=== PATIENT | female | born 1945 | race Caucasian/White ===

== ENCOUNTER → 2018-01-08 00:55 | Outpatient (CLI) | payer MEDICARE, OTHER, SELFPAY ==
[2018-01-08 13:08] LABS: INR 1.8 (1.0-3.5); Prothrombin Time 17.6 sec (9.3-10.8)
== END ==
PROVIDERS: PCP Family Medicine; Visit Provider Family Medicine
DX: I48.91 Unspecified atrial fibrillation (principal); Z79.01 Long term (current) use of anticoagulants
CPT/HCPCS: 36415; 85610

== ENCOUNTER → 2018-01-22 03:55 | Outpatient (CLI) | payer MEDICARE, OTHER, SELFPAY ==
[2018-01-22 11:18] LABS: Hemoglobin A1C 6.2 % (4.5-6.2)
[2018-01-22 11:20] LABS: Anion Gap 7.9 mmol/L (3-11); CO2 30.1 mmol/L (21.0-32.0); CREATININE 1.54 mg/dL (0.55-1.02); Chloride 105 mmol/L (98-107); Estimated GFR 33.21 (mL/min/1.73m2); Potassium 4.6 mmol/L (3.5-5.1); Sodium 143 mmol/L (136-145)
[2018-01-22 11:21] LABS: INR 1.9 (1.0-3.5); Prothrombin Time 18.1 sec (9.3-10.8)
== END ==
PROVIDERS: PCP Family Medicine; Visit Provider Family Medicine
DX: I10 Essential (primary) hypertension (principal); E11.9 Type 2 diabetes mellitus without complications; I48.91 Unspecified atrial fibrillation; Z79.1 Long term (current) use of non-steroidal anti-inflammatories (NSAID)
CPT/HCPCS: 36415; 80051; 82565; 83036; 85610

== ENCOUNTER 2018-02-05 03:26 | Outpatient (CLI) | payer MEDICARE, OTHER, SELFPAY ==
[2018-02-05 13:23] LABS: INR 1.8 (1.0-3.5)
== END 2018-02-05 03:27 ==
PROVIDERS: PCP Family Medicine; Visit Provider Family Medicine
DX: I48.91 Unspecified atrial fibrillation (principal); Z79.01 Long term (current) use of anticoagulants
CPT/HCPCS: 36415; 85610

== ENCOUNTER 2018-02-12 05:30 | Outpatient (CLI) | payer MEDICARE, OTHER, SELFPAY ==
[2018-02-12 13:02] LABS: Prothrombin Time 19.2 sec (9.3-10.8)
[2018-02-13 21:20] LABS: Tissue Transglutaminase Ab IgA <1.2 U/mL; Tissue Transglutaminase Ab IgG 1.8 U/mL
== END 2018-02-12 05:50 ==
PROVIDERS: PCP Family Medicine; Visit Provider Family Medicine
DX: K52.9 Noninfective gastroenteritis and colitis, unspecified (principal); I48.91 Unspecified atrial fibrillation; Z79.01 Long term (current) use of anticoagulants
CPT/HCPCS: 36415; 83516; 85610

== ENCOUNTER 2018-02-19 01:36 | Outpatient (CLI) | payer MEDICARE, OTHER, SELFPAY ==
[2018-02-19 12:50] LABS: INR 2.3 (1.0-3.5); Prothrombin Time 21.4 sec (9.3-10.8)
== END 2018-02-19 01:56 ==
PROVIDERS: PCP Family Medicine; Visit Provider Family Medicine
DX: I48.91 Unspecified atrial fibrillation (principal); Z79.01 Long term (current) use of anticoagulants
CPT/HCPCS: 36415; 85610

== ENCOUNTER 2018-03-09 02:20 | Outpatient (CLI) | payer MEDICARE, OTHER, SELFPAY ==
[2018-03-09 13:16] LABS: INR 2.4 (1.0-3.5); Prothrombin Time 22.9 sec (9.3-10.8)
== END 2018-03-09 02:40 ==
PROVIDERS: PCP Family Medicine; Visit Provider Family Medicine
DX: I48.91 Unspecified atrial fibrillation (principal); Z79.01 Long term (current) use of anticoagulants
CPT/HCPCS: 36415; 85610

== ENCOUNTER 2018-03-23 01:40 | Outpatient (CLI) | payer MEDICARE, OTHER, SELFPAY ==
[2018-03-23 13:08] LABS: Prothrombin Time 19.5 sec (9.3-10.8)
== END 2018-03-23 02:00 ==
PROVIDERS: PCP Family Medicine; Visit Provider Family Medicine
DX: I48.91 Unspecified atrial fibrillation (principal); Z79.01 Long term (current) use of anticoagulants
CPT/HCPCS: 36415; 85610

== ENCOUNTER 2018-04-28 01:33 | Outpatient (CLI) | payer MEDICARE, OTHER, SELFPAY ==
[2018-04-28 11:21] LABS: INR 1.7 (1.0-3.5); Prothrombin Time 16.5 sec (9.3-10.8)
== END 2018-04-28 01:53 ==
PROVIDERS: PCP Family Medicine; Visit Provider Family Medicine
DX: I48.91 Unspecified atrial fibrillation (principal); Z79.01 Long term (current) use of anticoagulants
CPT/HCPCS: 36415; 85610

== ENCOUNTER 2018-05-27 08:38 | Outpatient (CLI) | payer MEDICARE, OTHER, SELFPAY ==
[2018-05-27 12:48] LABS: Prothrombin Time 19.8 sec (9.3-11.0)
== END 2018-05-27 08:58 ==
PROVIDERS: PCP Family Medicine; Visit Provider Family Medicine
DX: I48.91 Unspecified atrial fibrillation (principal); Z79.01 Long term (current) use of anticoagulants
CPT/HCPCS: 36415; 85610

== ENCOUNTER 2018-07-02 01:14 | Outpatient (CLI) | payer MEDICARE, OTHER, SELFPAY ==
[2018-07-02 12:02] LABS: INR 2.8 (0.9-1.1); Prothrombin Time 28.3 sec (9.3-11.0)
== END 2018-07-02 01:34 ==
PROVIDERS: PCP Family Medicine; Visit Provider Family Medicine
DX: I48.91 Unspecified atrial fibrillation (principal); Z79.01 Long term (current) use of anticoagulants
CPT/HCPCS: 36415; 85610

== ENCOUNTER 2018-08-02 01:44 | Outpatient (CLI) | payer MEDICARE, OTHER, SELFPAY ==
[2018-08-02 11:02] LABS: INR 1.7 (0.9-1.1); Prothrombin Time 17.1 sec (9.3-11.0)
== END 2018-08-02 02:04 ==
PROVIDERS: PCP Family Medicine; Visit Provider Family Medicine
DX: I48.91 Unspecified atrial fibrillation (principal); Z79.01 Long term (current) use of anticoagulants
CPT/HCPCS: 36415; 85610

== ENCOUNTER 2018-08-20 02:24 | Outpatient (CLI) | payer MEDICARE, OTHER, SELFPAY ==
[2018-08-20 14:08] LABS: Prothrombin Time 43.9 sec (9.3-11.0)
[2018-08-20 14:23] LABS: INR 4.3 (0.9-1.1)
== END 2018-08-20 02:44 ==
PROVIDERS: PCP Family Medicine; Visit Provider Family Medicine
DX: I48.1 Persistent atrial fibrillation (principal); Z79.01 Long term (current) use of anticoagulants
CPT/HCPCS: 36415; 85610

== ENCOUNTER 2018-08-23 01:40 | Outpatient (CLI) | payer MEDICARE, OTHER, SELFPAY | END 2018-08-23 02:00 | PROVIDERS: PCP Family Medicine; Visit Provider Family Medicine | DX: R69 Illness, unspecified (principal) | CPT/HCPCS: 36415; 85610 ==

== ENCOUNTER 2018-08-24 02:08 | Outpatient (CLI) | payer MEDICARE, OTHER, SELFPAY ==
[2018-08-24 11:44] LABS: Prothrombin Time 20.1 sec (9.3-11.0)
== END 2018-08-24 02:28 ==
PROVIDERS: PCP Family Medicine; Visit Provider Family Medicine
DX: I48.91 Unspecified atrial fibrillation (principal); Z79.01 Long term (current) use of anticoagulants
CPT/HCPCS: 36415; 85610

== ENCOUNTER 2018-08-31 02:05 | Outpatient (CLI) | payer MEDICARE, OTHER, SELFPAY ==
[2018-08-31 13:08] LABS: INR 2.3 (0.9-1.1); Prothrombin Time 23.1 sec (9.3-11.0)
== END 2018-08-31 02:25 ==
PROVIDERS: PCP Family Medicine; Visit Provider Family Medicine
DX: I48.91 Unspecified atrial fibrillation (principal); Z79.01 Long term (current) use of anticoagulants
CPT/HCPCS: 36415; 85610

== ENCOUNTER 2018-09-07 02:09 | Outpatient (CLI) | payer MEDICARE, OTHER, SELFPAY ==
[2018-09-07 13:28] LABS: INR 1.2 (0.9-1.1); Prothrombin Time 12.3 sec (9.3-11.0)
[2018-09-07 15:40] LABS: Hemoglobin A1C 6.1 % (4.5-6.2)
== END 2018-09-07 02:29 ==
PROVIDERS: PCP Family Medicine; Visit Provider Family Medicine
DX: E11.9 Type 2 diabetes mellitus without complications (principal); I48.91 Unspecified atrial fibrillation; Z79.01 Long term (current) use of anticoagulants
CPT/HCPCS: 36415; 83036; 85610

== ENCOUNTER 2018-09-13 02:22 | Outpatient (CLI) | payer MEDICARE, OTHER, SELFPAY ==
[2018-09-13 12:48] LABS: Prothrombin Time 20.6 sec (9.3-11.0)
== END 2018-09-13 02:42 ==
PROVIDERS: PCP Family Medicine; Visit Provider Family Medicine
DX: I48.91 Unspecified atrial fibrillation (principal); Z79.01 Long term (current) use of anticoagulants
CPT/HCPCS: 36415; 85610

== ENCOUNTER 2018-09-20 01:48 | Outpatient (CLI) | payer MEDICARE, OTHER, SELFPAY ==
[2018-09-20 10:54] LABS: INR 3.2 (0.9-1.1); Prothrombin Time 32.7 sec (9.3-11.0)
== END 2018-09-20 02:08 ==
PROVIDERS: Family Medicine; PCP Family Medicine; Visit Provider Family Medicine
DX: I26.99 Other pulmonary embolism without acute cor pulmonale (principal); Z79.01 Long term (current) use of anticoagulants
CPT/HCPCS: 36415; 85610

== ENCOUNTER 2018-09-27 04:25 | Outpatient (CLI) | payer MEDICARE, OTHER, SELFPAY ==
[2018-09-27 11:39] LABS: INR 3.1 (0.9-1.1); Prothrombin Time 31.6 sec (9.3-11.0)
== END 2018-09-27 04:45 ==
PROVIDERS: PCP Family Medicine; Visit Provider Family Medicine
DX: I48.91 Unspecified atrial fibrillation (principal); Z79.01 Long term (current) use of anticoagulants
CPT/HCPCS: 36415; 85610

== ENCOUNTER 2018-10-04 02:18 | Outpatient (CLI) | payer MEDICARE, OTHER, SELFPAY ==
[2018-10-04 12:58] LABS: INR 2.1 (0.9-1.1); Prothrombin Time 21.6 sec (9.3-11.0)
== END 2018-10-04 02:38 ==
PROVIDERS: PCP Family Medicine; Visit Provider Family Medicine
DX: I48.91 Unspecified atrial fibrillation (principal); Z79.01 Long term (current) use of anticoagulants
CPT/HCPCS: 36415; 85610

== ENCOUNTER 2018-10-18 01:18 | Outpatient (CLI) | payer MEDICARE, OTHER, SELFPAY ==
[2018-10-18 13:22] LABS: INR 2.5 (0.9-1.1); Prothrombin Time 24.9 sec (9.3-11.0)
== END 2018-10-18 01:38 ==
PROVIDERS: PCP Family Medicine; Visit Provider Family Medicine
DX: I48.91 Unspecified atrial fibrillation (principal); Z79.01 Long term (current) use of anticoagulants
CPT/HCPCS: 36415; 85610

== ENCOUNTER 2018-11-02 02:31 | Outpatient (CLI) | payer MEDICARE, OTHER, SELFPAY ==
[2018-11-02 13:30] LABS: Anion Gap 9.9 mmol/L (3-11); BUN 28 mg/dL (7-18); CO2 28.1 mmol/L (21.0-32.0); CREATININE 1.78 mg/dL (0.55-1.02); Calcium 8.9 mg/dL (8.5-10.1); Chloride 104 mmol/L (98-107); Estimated GFR 28.02 (mL/min/1.73m2); Glucose 77 mg/dL (70-100); NT-proBNP 1078 pg/mL; Potassium 3.9 mmol/L (3.5-5.1); Sodium 142 mmol/L (136-145)
== END 2018-11-02 02:51 ==
PROVIDERS: Nurse Practitioner; PCP Family Medicine; Visit Provider Family Medicine
DX: R06.02 Shortness of breath (principal); I50.32 Chronic diastolic (congestive) heart failure
CPT/HCPCS: 36415; 80048; 83880

== ENCOUNTER 2018-11-16 02:01 | Outpatient (CLI) | payer MEDICARE, OTHER, SELFPAY ==
[2018-11-16 13:11] LABS: INR 1.5 (0.9-1.1); Prothrombin Time 15.5 sec (9.3-11.0)
== END 2018-11-16 02:21 ==
PROVIDERS: PCP Family Medicine; Visit Provider Family Medicine
DX: I48.91 Unspecified atrial fibrillation (principal); Z79.01 Long term (current) use of anticoagulants
CPT/HCPCS: 36415; 85610

== ENCOUNTER 2018-11-24 01:13 | Outpatient (CLI) | payer MEDICARE, OTHER, SELFPAY ==
[2018-11-24 11:16] LABS: INR 2.1 (0.9-1.1); Prothrombin Time 21.1 sec (9.3-11.0)
== END 2018-11-24 01:33 ==
PROVIDERS: PCP Family Medicine; Visit Provider Family Medicine
DX: I48.91 Unspecified atrial fibrillation (principal); Z79.01 Long term (current) use of anticoagulants
CPT/HCPCS: 36415; 85610

== ENCOUNTER 2018-12-07 02:09 | Outpatient (CLI) | payer MEDICARE, OTHER, SELFPAY ==
[2018-12-07 12:38] LABS: INR 1.7 (0.9-1.1); Prothrombin Time 16.6 sec (9.3-11.0)
[2018-12-07 13:29] LABS: Anion Gap 9.2 mmol/L (3-11); BUN 27 mg/dL (7-18); CO2 28.8 mmol/L (21.0-32.0); CREATININE 1.76 mg/dL (0.55-1.02); Calcium 8.5 mg/dL (8.5-10.1); Chloride 104 mmol/L (98-107); Estimated GFR 28.38 (mL/min/1.73m2); Glucose 106 mg/dL (70-100); Potassium 4.2 mmol/L (3.5-5.1); Sodium 142 mmol/L (136-145)
[2018-12-07 17:27] LABS: ALT 21 U/L (12-78); AST 18 U/L (15-37); Albumin 3.7 g/dL (3.4-5.0); Alkaline Phosphatase 119 U/L (46-116); Bilirubin, Total 0.6 mg/dL (0.2-1.0)
== END 2018-12-07 02:29 ==
PROVIDERS: Nurse Practitioner Adult Health; PCP Family Medicine; Referring Provider Internal Medicine Cardiovascular Disease; Visit Provider Family Medicine
DX: I50.30 Unspecified diastolic (congestive) heart failure (principal); R94.5 Abnormal results of liver function studies; I48.91 Unspecified atrial fibrillation; Z79.01 Long term (current) use of anticoagulants; R06.00 Dyspnea, unspecified
CPT/HCPCS: 36415; 80048; 80053; 85610

== ENCOUNTER 2018-12-15 01:53 | Outpatient (CLI) | payer MEDICARE, OTHER, SELFPAY ==
[2018-12-15 13:44] LABS: INR 2.5 (0.9-1.1); Prothrombin Time 25.3 sec (9.3-11.0)
== END 2018-12-15 02:13 ==
PROVIDERS: PCP Family Medicine; Visit Provider Family Medicine
DX: I48.91 Unspecified atrial fibrillation (principal); Z79.01 Long term (current) use of anticoagulants
CPT/HCPCS: 36415; 85610

== ENCOUNTER 2018-12-29 01:45 | Outpatient (CLI) | payer MEDICARE, OTHER, SELFPAY ==
[2018-12-29 11:42] LABS: Prothrombin Time 53.4 sec (9.3-11.0)
[2018-12-29 12:01] LABS: INR 5.3 (0.9-1.1)
== END 2018-12-29 02:05 ==
PROVIDERS: PCP Family Medicine; Visit Provider Family Medicine
DX: I48.91 Unspecified atrial fibrillation (principal); Z79.01 Long term (current) use of anticoagulants
CPT/HCPCS: 36415; 85610

== ENCOUNTER 2018-12-31 04:16 | Outpatient (CLI) | payer MEDICARE, SELFPAY ==
[2018-12-31 14:06] LABS: INR 2.9 (0.9-1.1); Prothrombin Time 28.9 sec (9.3-11.0)
== END 2018-12-31 04:36 ==
PROVIDERS: PCP Family Medicine; Visit Provider Family Medicine
DX: I48.91 Unspecified atrial fibrillation (principal); Z79.01 Long term (current) use of anticoagulants
CPT/HCPCS: 36415; 85610

== ENCOUNTER 2019-01-03 01:11 | Outpatient (CLI) | payer MEDICARE, SELFPAY ==
[2019-01-03 13:24] LABS: INR 2.5 (0.9-1.1); Prothrombin Time 25.1 sec (9.3-11.0)
== END 2019-01-03 01:31 ==
PROVIDERS: PCP Family Medicine; Visit Provider Family Medicine
DX: I48.91 Unspecified atrial fibrillation (principal); Z79.01 Long term (current) use of anticoagulants
CPT/HCPCS: 36415; 85610

== ENCOUNTER 2019-01-10 01:43 | Outpatient (CLI) | payer MEDICARE, SELFPAY ==
[2019-01-10 15:33] LABS: INR 1.2 (0.9-1.1); Prothrombin Time 12.2 sec (9.3-11.0)
== END 2019-01-10 02:03 ==
PROVIDERS: PCP Family Medicine; Visit Provider Family Medicine
DX: I48.91 Unspecified atrial fibrillation (principal); Z79.01 Long term (current) use of anticoagulants
CPT/HCPCS: 36415; 85610

== ENCOUNTER 2019-01-17 01:32 | Outpatient (CLI) | payer MEDICARE, SELFPAY ==
[2019-01-17 11:48] LABS: INR 1.3 (0.9-1.1); Prothrombin Time 13.3 sec (9.3-11.0)
== END 2019-01-17 01:52 ==
PROVIDERS: PCP Family Medicine; Visit Provider Family Medicine
DX: I48.91 Unspecified atrial fibrillation (principal); Z79.01 Long term (current) use of anticoagulants
CPT/HCPCS: 36415; 85610

== ENCOUNTER 2019-01-24 02:06 | Outpatient (CLI) | payer MEDICARE, SELFPAY ==
[2019-01-24 12:03] LABS: INR 2.1 (0.9-1.1); Prothrombin Time 21.5 sec (9.3-11.0)
== END 2019-01-24 02:26 ==
PROVIDERS: PCP Family Medicine; Visit Provider Family Medicine
DX: I48.91 Unspecified atrial fibrillation (principal); Z79.01 Long term (current) use of anticoagulants
CPT/HCPCS: 36415; 85610

== ENCOUNTER 2019-01-31 02:01 | Outpatient (CLI) | payer MEDICARE, SELFPAY ==
[2019-01-31 11:02] LABS: INR 1.9 (0.9-1.1); Prothrombin Time 18.9 sec (9.3-11.0)
== END 2019-01-31 02:21 ==
PROVIDERS: PCP Family Medicine; Visit Provider Family Medicine
DX: I48.91 Unspecified atrial fibrillation (principal); Z79.01 Long term (current) use of anticoagulants
CPT/HCPCS: 36415; 85610

== ENCOUNTER 2019-02-08 01:18 | Outpatient (CLI) | payer MEDICARE, OTHER, SELFPAY ==
[2019-02-08 11:15] LABS: INR 2.2 (0.9-1.1); Prothrombin Time 21.9 sec (9.3-11.0)
== END 2019-02-08 01:38 ==
PROVIDERS: PCP Family Medicine; Visit Provider Family Medicine
DX: I48.91 Unspecified atrial fibrillation (principal); Z79.01 Long term (current) use of anticoagulants
CPT/HCPCS: 36415; 85610

== ENCOUNTER 2019-02-21 01:34 | Outpatient (CLI) | payer MEDICARE, OTHER, SELFPAY ==
[2019-02-21 11:47] LABS: CREATININE 1.86 mg/dL (0.55-1.02); Estimated GFR 26.63 (mL/min/1.73m2)
[2019-02-21 11:58] LABS: Hemoglobin A1C 6.1 % (4.5-6.2)
[2019-02-21 12:52] LABS: INR 1.7 (0.9-1.1); Prothrombin Time 16.8 sec (9.3-11.0)
== END 2019-02-21 01:54 ==
PROVIDERS: PCP Family Medicine; Visit Provider Family Medicine
DX: E11.9 Type 2 diabetes mellitus without complications (principal); I48.91 Unspecified atrial fibrillation; Z79.01 Long term (current) use of anticoagulants
CPT/HCPCS: 36415; 82565; 83036; 85610

== ENCOUNTER 2019-02-28 01:03 | Outpatient (CLI) | payer MEDICARE, OTHER, SELFPAY ==
[2019-02-28 12:40] LABS: INR 2.2 (0.9-1.1); Prothrombin Time 21.8 sec (9.3-11.0)
== END 2019-02-28 01:23 ==
LOC: LBO 01:04 → LOS 12:35
PROVIDERS: PCP Family Medicine; Visit Provider Family Medicine
DX: I48.91 Unspecified atrial fibrillation (principal); Z79.01 Long term (current) use of anticoagulants
CPT/HCPCS: 36415; 85610

== ENCOUNTER 2019-03-14 02:43 | Outpatient (CLI) | payer MEDICARE, OTHER, SELFPAY ==
[2019-03-14 13:01] LABS: INR 2.7 (0.9-1.1); Prothrombin Time 26.5 sec (9.3-11.0)
== END 2019-03-14 03:03 ==
PROVIDERS: PCP Family Medicine; Visit Provider Family Medicine
DX: I48.91 Unspecified atrial fibrillation (principal); Z79.01 Long term (current) use of anticoagulants
CPT/HCPCS: 36415; 85610

== ENCOUNTER 2019-04-04 02:13 | Outpatient (CLI) | payer MEDICARE, OTHER, SELFPAY ==
[2019-04-04 13:33] LABS: INR 1.9 (0.9-1.1); Prothrombin Time 18.5 sec (9.3-11.0)
== END 2019-04-04 02:33 ==
PROVIDERS: PCP Family Medicine; Visit Provider Family Medicine
DX: I48.91 Unspecified atrial fibrillation (principal); Z79.01 Long term (current) use of anticoagulants
CPT/HCPCS: 36415; 85610

== ENCOUNTER 2019-04-13 02:41 | Outpatient (CLI) | payer MEDICARE, OTHER, SELFPAY ==
[2019-04-13 13:01] LABS: INR 3.6 (0.9-1.1); Prothrombin Time 35.5 sec (9.3-11.0)
== END 2019-04-13 03:01 ==
PROVIDERS: PCP Family Medicine; Visit Provider Family Medicine
DX: I48.91 Unspecified atrial fibrillation (principal); Z79.01 Long term (current) use of anticoagulants
CPT/HCPCS: 36415; 85610

== ENCOUNTER 2019-04-21 02:09 | Outpatient (CLI) | payer MEDICARE, OTHER, SELFPAY ==
[2019-04-21 10:48] LABS: INR 3.5 (0.9-1.1); Prothrombin Time 33.8 sec (9.3-11.0)
== END 2019-04-21 02:29 ==
PROVIDERS: PCP Family Medicine; Visit Provider Family Medicine
DX: I48.91 Unspecified atrial fibrillation (principal); Z79.01 Long term (current) use of anticoagulants
CPT/HCPCS: 36415; 85610

== ENCOUNTER 2019-04-27 07:49 | Outpatient (CLI) | payer MEDICARE, OTHER, SELFPAY ==
[2019-04-27 12:52] LABS: INR 2.1 (0.9-1.1); Prothrombin Time 20.6 sec (9.3-11.0)
== END 2019-04-27 08:09 ==
PROVIDERS: PCP Family Medicine; Visit Provider Family Medicine
DX: I48.91 Unspecified atrial fibrillation (principal); Z79.01 Long term (current) use of anticoagulants
CPT/HCPCS: 36415; 85610

== ENCOUNTER 2019-05-04 00:52 | Outpatient (CLI) | payer MEDICARE, OTHER, SELFPAY ==
[2019-05-04 13:29] LABS: INR 1.3 (0.9-1.1); Prothrombin Time 13.3 sec (9.3-11.0)
== END 2019-05-04 01:12 ==
PROVIDERS: PCP Family Medicine; Visit Provider Family Medicine
DX: I48.91 Unspecified atrial fibrillation (principal); Z79.01 Long term (current) use of anticoagulants
CPT/HCPCS: 36415; 85610

== ENCOUNTER 2019-05-11 02:24 | Outpatient (CLI) | payer MEDICARE, OTHER, SELFPAY ==
[2019-05-11 12:56] LABS: Prothrombin Time 19.3 sec (9.3-11.0)
[2019-05-11 12:58] LABS: INR 1.9 (0.9-1.1)
== END 2019-05-11 02:44 ==
PROVIDERS: PCP Family Medicine; Visit Provider Family Medicine
DX: I48.91 Unspecified atrial fibrillation (principal); Z79.01 Long term (current) use of anticoagulants
CPT/HCPCS: 36415; 85610

== ENCOUNTER 2019-05-23 02:10 | Outpatient (CLI) | payer MEDICARE, OTHER, SELFPAY ==
[2019-05-23 11:09] LABS: CREATININE 1.73 mg/dL (0.55-1.02); Estimated GFR 28.95 (mL/min/1.73m2); Potassium 4.3 mmol/L (3.5-5.1)
[2019-05-23 11:29] LABS: INR 2.1 (0.9-1.1); Prothrombin Time 20.5 sec (9.3-11.0)
== END 2019-05-23 02:30 ==
PROVIDERS: PCP Family Medicine; Visit Provider Family Medicine
DX: I48.91 Unspecified atrial fibrillation; Z79.01 Long term (current) use of anticoagulants; N28.9 Disorder of kidney and ureter, unspecified
CPT/HCPCS: 36415; 82565; 84132; 85610

== ENCOUNTER 2019-06-13 12:48 | Outpatient (CLI) | payer MEDICARE, OTHER, SELFPAY ==
[2019-06-13 14:19] LABS: INR 1.6 (0.9-1.1); Prothrombin Time 15.6 sec (9.3-11.0)
== END 2019-06-13 13:08 ==
PROVIDERS: PCP Family Medicine; Visit Provider Family Medicine
DX: I48.91 Unspecified atrial fibrillation (principal); Z79.01 Long term (current) use of anticoagulants
CPT/HCPCS: 36415; 85610

== ENCOUNTER 2019-06-27 01:20 | Outpatient (CLI) | payer MEDICARE, OTHER, SELFPAY ==
[2019-06-27 13:47] LABS: INR 1.4 (0.9-1.1); Prothrombin Time 14.3 sec (9.3-11.0)
== END 2019-06-27 01:40 ==
PROVIDERS: PCP Family Medicine; Visit Provider Family Medicine
DX: I48.91 Unspecified atrial fibrillation (principal); Z79.01 Long term (current) use of anticoagulants
CPT/HCPCS: 36415; 85610

== ENCOUNTER 2019-07-11 02:39 | Outpatient (CLI) | payer MEDICARE, OTHER, SELFPAY ==
[2019-07-11 13:06] LABS: INR 3.2 (0.9-1.1); Prothrombin Time 31.6 sec (9.3-11.0)
== END 2019-07-11 02:59 ==
PROVIDERS: PCP Family Medicine; Visit Provider Family Medicine
DX: I48.91 Unspecified atrial fibrillation (principal); Z79.01 Long term (current) use of anticoagulants
CPT/HCPCS: 36415; 85610

== ENCOUNTER 2019-07-19 02:16 | Outpatient (CLI) | payer MEDICARE, OTHER, SELFPAY ==
[2019-07-19 12:34] LABS: INR 3.6 (0.9-1.1); Prothrombin Time 34.8 sec (9.3-11.0)
== END 2019-07-19 02:36 ==
PROVIDERS: PCP Family Medicine; Visit Provider Family Medicine
DX: I48.91 Unspecified atrial fibrillation (principal); Z79.01 Long term (current) use of anticoagulants
CPT/HCPCS: 36415; 85610

== ENCOUNTER 2019-07-25 03:34 | Outpatient (CLI) | payer MEDICARE, OTHER, SELFPAY ==
[2019-07-25 13:31] LABS: INR 3.4 (0.9-1.1); Prothrombin Time 33.4 sec (9.3-11.0)
== END 2019-07-25 03:54 ==
PROVIDERS: PCP Family Medicine; Visit Provider Family Medicine
DX: I48.91 Unspecified atrial fibrillation (principal); Z79.01 Long term (current) use of anticoagulants
CPT/HCPCS: 36415; 85610

== ENCOUNTER 2019-08-01 01:46 | Outpatient (CLI) | payer MEDICARE, OTHER, SELFPAY ==
[2019-08-01 12:42] LABS: Prothrombin Time 19.8 sec (9.3-11.0)
[2019-08-01 12:43] LABS: Anion Gap 8.1 mmol/L (3-11); BUN 27 mg/dL (7-18); CO2 31.9 mmol/L (21.0-32.0); CREATININE 1.58 mg/dL (0.55-1.02); Calcium 8.5 mg/dL (8.5-10.1); Chloride 102 mmol/L (98-107); Estimated GFR 32.15 (mL/min/1.73m2); Glucose 107 mg/dL (74-106); Potassium 3.7 mmol/L (3.5-5.1); Sodium 142 mmol/L (136-145)
== END 2019-08-01 02:06 ==
PROVIDERS: Nurse Practitioner Adult Health; PCP Family Medicine; Visit Provider Family Medicine
DX: I50.20 Unspecified systolic (congestive) heart failure (principal); R06.00 Dyspnea, unspecified; I48.91 Unspecified atrial fibrillation; Z79.01 Long term (current) use of anticoagulants
CPT/HCPCS: 36415; 80048; 85610

== ENCOUNTER 2019-08-08 02:07 | Outpatient (CLI) | payer MEDICARE, OTHER, SELFPAY ==
[2019-08-08 13:20] LABS: INR 2.6 (0.9-1.1); Prothrombin Time 25.9 sec (9.3-11.0)
== END 2019-08-08 02:27 ==
PROVIDERS: PCP Family Medicine; Visit Provider Family Medicine
DX: I48.91 Unspecified atrial fibrillation (principal); Z79.01 Long term (current) use of anticoagulants
CPT/HCPCS: 36415; 85610

== ENCOUNTER 2019-08-22 01:21 | Outpatient (CLI) | payer MEDICARE, OTHER, SELFPAY ==
[2019-08-22 12:30] LABS: INR 3.6 (0.9-1.1); Prothrombin Time 34.9 sec (9.3-11.0)
== END 2019-08-22 01:41 ==
PROVIDERS: PCP Family Medicine; Visit Provider Family Medicine
DX: I48.91 Unspecified atrial fibrillation (principal); Z79.01 Long term (current) use of anticoagulants
CPT/HCPCS: 36415; 85610

== ENCOUNTER 2019-08-31 13:24 | Emergency (ER) | payer MEDICARE, OTHER, SELFPAY ==
[2019-08-31] VITALS (25 sets, daily range): BP systolic 114–142; BP diastolic 59–108; PULSE 60–94; RESP 10–24; TEMP 37; O2SAT 81–98
--- NOTE | 2019-08-31 13:30 | DI.RAD_ITS ---
EXAM: XR PORTABLE CHEST AP CLINICAL HISTORY: chest pain/shortness of breath TECHNIQUE: 2D digital imaging was performed. COMPARISON: CHEST 2 VIEWS PA,LAT from 09/03/2017 FINDINGS: MEDIASTINUM: Normal. HEART: Normal. PULMONARY VASCULATURE: Normal. LUNGS: No focal consolidating infiltrates. There are areas of atelectasis or scarring in the lungs. PLEURAL SPACE: No pleural effusion or pneumothorax. BONE:Normal. OTHER FINDINGS:Normal. IMPRESSION: No acute pulmonary findings. DATA REPOSITORY: RADIATION DOSE DELIVERED:
--- NOTE | 2019-08-31 13:41 | ED.GENADUL_ITS ---
Discharge Plan Disposition Patient Disposition: HOME Condition: Stable Discharge Details Chief Complaint: Chest Pain Clinical Impression: COPD exacerbation, Chest pain Primary Care Provider: Connor Medley ED Provider: Ace Rubio Artie Meds and New Rx's Prescriptions: Continued trazodone 50 mg tablet 25 - 50 mg PO HS PRN (Reason: insomnia) Qty: 30 RF: 5 Spiriva Respimat 2.5 mcg/actuation mist 2 inh IH QAM Qty: 4 RF: 3 venlafaxine 37.5 mg capsule,extended release 24hr 37.5 mg PO DAILY Qty: 30 RF: 2 metolazone 2.5 mg tablet 2.5 mg PO every 3 days prn Qty: 20 RF: 0 fluticasone propionate 50 mcg/actuation spray,suspension 2 spray CRISTINA DAILY Qty: 9.9 RF: 5 diphenhydramine-acetaminophen [Tylenol PM Extra Strength] 25-500 mg tablet 2 tab PO HS PRNRF: 0 lorazepam 0.5 mg tablet 0.5 mg PO Q12H PRN (Reason: anxiety) Qty: 20 RF: 0 torsemide 100 mg tablet 50 - 100 mg PO DAILY RF: 0 albuterol sulfate [ProAir HFA] 90 mcg/actuation HFA aerosol inhaler 2 puff Inhalation Q4H PRN Qty: 1 RF: 2 allopurinol 100 mg tablet 200 mg PO DAILY Qty: 180 RF: 3 atorvastatin 40 mg tablet 40 mg PO DAILY Qty: 90 RF: 3 donepezil 10 mg tablet 10 mg PO DAILY Qty: 90 RF: 3 bupropion HCl 150 mg tablet sustained-release 12 hr 150 mg PO BID Qty: 180 RF: 3 Hold Instructions: Home Medication placed on hold at Doctor's office levothyroxine 88 mcg capsule 88 mcg PO DAILY Qty: 90 RF: 3 nystatin 100,000 unit/gram powder 1 applic TP BID PRN (Reason: breast rash) Qty: 30 RF: 2 Gas-X 62.5 MG strip 1 strip PO PRN RF: 0 [place]-3 Krill Oil 1 EACH capsule 1 ea PO DAILY RF: 0 clotrimazole-betamethasone 1-0.05 % cream 1 applic TP BID PRN (Reason: apply to rash under breast) Qty: 30 RF: 0 folic acid 1 mg tablet 1 mg PO DAILY Qty: 100 RF: 3 metoprolol succinate 50 mg tablet extended release 24 hr 50 mg PO DAILY Qty: 90 RF: 3 spironolactone 25 mg tablet 25 mg PO DAILY Qty: 90 RF: 3 potassium chloride [Klor-Con 10] 10 mEq tablet extended release 20 meq PO DAILY Qty: 800 RF: 6 sertraline 100 mg tablet 150 mg PO DAILY Qty: 90 RF: 3 warfarin 5 mg tablet 2.5 mg PO HS Qty: 90 RF: 4 IBguard 1 tab PO DAILY RF: 0 polyethylene glycol 3350 527 GM powder 1 cap PO PRN RF: 0 docusate sodium [Stool Softener] 100 MG capsule 100 mg PO PRN PRNRF: 0 acetaminophen [Tylenol Extra Strength] 500 MG tablet 500 mg PO PRN PRNRF: 0 Discharge Instructions Instructions: Chest Pain (ED), COPD (Chronic Obstructive Pulmonary Disease) (ED) Additional Instructions: follow up with your primary care provider this week if you feel worsening pain, difficulty breathing or feel more ill return to the emergency department Medical Decision Making 73 yo female with hx of afib on coumadin, tricuspid regurgitation, ckd, mitral regurgitation, hld, htn, copd who used to be on home o2 but hasn't had it in over a year because it didn't do anything, pacemaker, comes in with chief complaint of chest pressure for 3 days along with shortness of breath. Dneies fevers, vomit, diaphoresis, radiation of the pain. She has wheezing in the lower lobes bilaterally on exam, and on bedside u/s has no significant b lines or pericardial effusion. Suspect copd and also possible angina based on symptoms, ekg unchanged from prior ekg. Will tx with nebs, dexamethasone as she has prednisone sensitivity and also asa and nitro and monitor. no evidence of dvt and her lung exam is consistent with copd and no pleuritic chest pain so doubt PE. No tearing back pain to suggest dissection Pt's labs and xray shows no acute pathology. She had resolution of her symptoms after one nitro, asa, dexamethasone and neb and has not had any recurrence of pain. Her o2 is also now 90% on room air and she states she is normally 87-90% on room air and checks it frequently. given 3 days of symptoms do not feel delta troponin would be of benefit as if this was nstemi would be elevated at this time. I did recommend admission at this time but she states she had a normal nuclear stress test a year ago and given concern for possible covid19 exposure the patient is choosing to be discharged and f/u with pcp and discuss stress testing. She will return if symptoms return or worsen Differential Diagnosis Differential Diagnosis: copd, chf, acs, angina Medical Records Medical records reviewed: Yes I reviewed the patient's medical records. Imaging Data Radiologic Study: Attestation: I personally reviewed and interpreted this imaging study as follows: Imaging: X-Ray Radiologist's impression: IMPRESSION: No acute pulmonary findings. Lab Data Lab results reviewed: Yes I reviewed the patient's lab results. ECG Data Attestation: I personally reviewed and interpreted this ECG (s) as follows: Prior ECG tracings: available for review Interpretation: sinus rhythm, rate of 90, qtc 482, no acute st t wave ischemic changes compared to ekg 08/29/2017 HPI General Mode of arrival: ambulatory . Date/Time Provider Initiated Documentation: 08/31/19 13:25 . Limitations to Documentation: no limitations . Information obtained by: patient . History of Present Illness 73 year old F presents to the emergency department with the chief complaint of chest pressure, and it has been constant. No relieving factors improve symptom(s), No exacerbating factors reported . Patient did receive the following treatments prior to arrival, none Related Data Home Medications Medication Instructions Recorded Confirmed Gas-X 1 strip PO PRN 09/27/12 08/31/19 polyethylene glycol 3350 1 cap PO PRN 10/31/13 08/31/19 [place]-3 Krill Oil 1 ea PO DAILY 02/15/15 08/31/19 acetaminophen [Tylenol Extra 500 mg PO PRN PRN 08/30/17 08/31/19 Strength] docusate sodium [Stool Softener] 100 mg PO PRN PRN 08/30/17 08/31/19 trazodone 50 mg tablet 25 - 50 mg PO HS PRN #30 tab 02/10/18 08/31/19 clotrimazole-betamethasone 1 1 applic TP BID PRN #30 gm 03/15/18 08/31/19 %-0.05 % topical cream diphenhydramine 25 2 tab PO HS PRN tab 05/19/18 08/31/19 mg-acetaminophen 500 mg tablet lorazepam 0.5 mg tablet 0.5 mg PO Q12H PRN #20 tab 05/19/18 08/31/19 folic acid 1 mg tablet 1 mg PO DAILY #100 tab 10/12/18 08/31/19 metoprolol succinate 50 mg 50 mg PO DAILY #90 tab 11/15/18 08/31/19 tablet,extended release 24 hr spironolactone 25 mg tablet 25 mg PO DAILY #90 tab 01/19/19 08/31/19 potassium chloride 10 mEq 20 meq PO DAILY #800 tab 01/20/19 08/31/19 tablet,extended release albuterol sulfate 90 mcg/actuation 2 puff INHALATION Q4H PRN #1 02/16/19 08/31/19 aerosol inhaler inhaler allopurinol 100 mg tablet 200 mg PO DAILY #180 tab 02/16/19 08/31/19 atorvastatin 40 mg tablet 40 mg PO DAILY #90 tab 02/16/19 08/31/19 bupropion HCl 150 mg tablet,12 hr 150 mg PO BID #180 tab 02/16/19 08/31/19 sustained-release donepezil 10 mg tablet 10 mg PO DAILY #90 tab 02/16/19 08/31/19 levothyroxine 88 mcg capsule 88 mcg PO DAILY #90 cap 02/16/19 08/31/19 nystatin 100,000 unit/gram topical 1 applic TP BID PRN #30 gm 02/16/19 08/31/19 powder torsemide 100 mg tablet 50 - 100 mg PO DAILY tab-cap 02/16/19 08/31/19 fluticasone propionate 50 2 spray CRISTINA DAILY #9.9 gm 05/24/19 08/31/19 mcg/actuation nasal spray,suspension metolazone 2.5 mg tablet 2.5 mg PO every 3 days prn #20 05/24/19 08/31/19 tab-cap tiotropium bromide 2.5 2 inh IH QAM #4 gm 05/24/19 08/31/19 mcg/actuation mist for inhalation venlafaxine 37.5 mg 37.5 mg PO DAILY #30 cap 05/24/19 08/31/19 capsule,extended release 24 hr sertraline 100 mg tablet 150 mg PO DAILY #90 tab 08/02/19 08/31/19 warfarin 5 mg tablet 2.5 mg PO HS #90 tab-cap 08/02/19 08/31/19 IBguard 1 tab PO DAILY 08/31/19 08/31/19 Previous Rx's Medication Instructions Recorded trazodone 50 mg tablet 25 - 50 mg PO HS PRN #30 tab 02/10/18 clotrimazole-betamethasone 1 1 applic TP BID PRN #30 gm 03/15/18 %-0.05 % topical cream lorazepam 0.5 mg tablet 0.5 mg PO Q12H PRN #20 tab 05/19/18 folic acid 1 mg tablet 1 mg PO DAILY #100 tab 10/12/18 metoprolol succinate 50 mg 50 mg PO DAILY #90 tab 11/15/18 tablet,extended release 24 hr spironolactone 25 mg tablet 25 mg PO DAILY #90 tab 01/19/19 potassium chloride 10 mEq 20 meq PO DAILY #800 tab 01/20/19 tablet,extended release albuterol sulfate 90 mcg/actuation 2 puff INHALATION Q4H PRN #1 02/16/19 aerosol inhaler inhaler allopurinol 100 mg tablet 200 mg PO DAILY #180 tab 02/16/19 atorvastatin 40 mg tablet 40 mg PO DAILY #90 tab 02/16/19 bupropion HCl 150 mg tablet,12 hr 150 mg PO BID #180 tab 02/16/19 sustained-release donepezil 10 mg tablet 10 mg PO DAILY #90 tab 02/16/19 levothyroxine 88 mcg capsule 88 mcg PO DAILY #90 cap 02/16/19 nystatin 100,000 unit/gram topical 1 applic TP BID PRN #30 gm 02/16/19 powder fluticasone propionate 50 2 spray CRISTINA DAILY #9.9 gm 05/24/19 mcg/actuation nasal spray,suspension metolazone 2.5 mg tablet 2.5 mg PO every 3 days prn #20 05/24/19 tab-cap tiotropium bromide 2.5 2 inh IH QAM #4 gm 05/24/19 mcg/actuation mist for inhalation venlafaxine 37.5 mg 37.5 mg PO DAILY #30 cap 05/24/19 capsule,extended release 24 hr sertraline 100 mg tablet 150 mg PO DAILY #90 tab 08/02/19 warfarin 5 mg tablet 2.5 mg PO HS #90 tab-cap 08/02/19 Allergies Allergy/AdvReac Type Severity Reaction Status Date / Time fluoxetine HCl [From Prozac] Allergy Mild Hives Unverified 08/31/19 13:37 prednisone AdvReac Severe PSYCHOSIS Unverified 08/31/19 13:37 amlodipine AdvReac Unknown EDEMA Unverified 08/31/19 13:37 General Stated Complaint: Chest Pain SANAZ: 2 Review of Systems All systems reviewed & are unremarkable except as noted in HPI and below Constitutional Constitutional: Denies chills, Denies fever(s) and Denies weakness Respiratory Respiratory: Denies cough Gastrointestinal Gastrointestinal: Denies abdominal pain, Denies nausea and Denies vomiting Musculoskeletal Musculoskeletal: Denies joint swelling Neurologic Neurologic: Denies weakness Psychiatric Psychiatric: Denies depression [facility] Family History (Updated 05/25/19 @ 08:36 by Fran Varner) Mother , age 60 Heart disease Father No problems noted. Brother , age 52 Lung cancer Depression Hypertension Brother , age 47 No problems noted. Social History (Updated 05/25/19 @ 08:32 by Fran Varner) Smoking/Tobacco Use Status: Former Tobacco Use Pack-years: 10 Tobacco: How many years used: 31 Alcohol Intake: never Drug use: Never Substance use type: does not use Caregiver/Support person: No Household members: spouse Communication Needs: Hard of Hearing and Corrective Lenses Do you need help understanding health information?: Rarely Pets and animals: No Do you think of yourself as: straight/heterosexual What is your relationship status?: How often do you talk on the phone with friends or family?: three or more times per week How often do you get together with friends or relatives?: once per week How often do you attend orthodox or uatsdin services?: 1-3 times per year Do you belong to any clubs or organized social groups?: no Panel score (0-1 are the most socially isolated patients): 2 What type of physical activity do you participate in: none Frequency: does not exercise Maricruz/Gnosticism: Christianity Special maricruz needs: No Seatbelt use: always Helmet use: No Drive intox or ride w/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 Do you feel safe in your relationship?: Yes Exam Const General: no acute distress Orientation: alert HENMT Head: normal to inspection Ears: external ears normal General nose exam: external nose normal Mouth: moist mucous membranes Eyes General: appearance normal, both eyes and all related structures Neck Neck: normal visual inspection Chest Chest: normal inspection of the chest Resp Effort & Inspection: normal respiratory effort and able to speak in complete sentences Cardio Rate: regular rate Skin General skin exam: no rashes or lesions noted Neuro General: patient alert and patient oriented x3 Extrem General: normal to inspection Psych Mental Status: mental status grossly normal Course Vital Signs Vital signs: Vital Signs Temperature 37 C 08/31/19 13:32 Pulse 92 H 08/31/19 13:32 Respiratory Rate 19 08/31/19 13:32 Blood Pressure 136/108 H 08/31/19 13:32 Pulse Oximetry 81 L 08/31/19 13:32 Temperature 37 C 08/31/19 13:32 Temperature Source Skin 08/31/19 13:32 Pulse 92 H 08/31/19 13:32 Respiratory Rate 19 08/31/19 13:32 Respiratory Effort Non-Labored 08/31/19 13:32 Blood Pressure 136/108 H 08/31/19 13:32 Pulse Oximetry 81 L 08/31/19 13:32 Oxygen Delivery Method Room Air 08/31/19 13:32 Oxygen Flow Rate 0 08/31/19 13:32 Pain Level 4 08/31/19 13:32
[2019-08-31 13:50] LABS: Abs Immature Grans 0.01 k/cumm (0.0-0.09); Absolute Basophil Count 0.02 k/cumm (0.0-0.2); Absolute Eosinophil Count 0.18 k/cumm (0.0-0.7); Absolute Lymphocyte Count 1.21 k/cumm (1.2-3.4); Absolute Monocyte Count 0.39 k/cumm (0.11-0.7); Absolute Neutrophil Count 5.12 k/cumm (1.2-6.7); Basophils % 0.3; Eosinophils % 2.6; HCT 41.1 % (36.0-46.0); HGB 13.2 g/dL (12.0-15.5); Immature Grans % 0.1 %; Lymphocytes % 17.5; Mean Corp. HGB Concentration 32.1 g/dL (32.0-36.0); Mean Corpuscular Volume 99.8 fL (80-95); Mean Platelet Volume 10.4 fL (8.0-11.0); Monocytes % 5.6; Neutrophils % 73.9; Platelet Count 230 x1000/uL (130-400); RBC 4.12 m/cumm (4.00-5.20); RBC Distribution Width 16.7 % (11.7-14.6); White Blood Cell Count 6.93 k/cumm (4.4-10.8)
[2019-08-31] MEDS: Albuterol/Ipratropium 3 ML UPD VIAL UPD (13:54)
[2019-08-31] MEDS: Aspirin 81 MG CHEW 324 MG CH (13:56)
[2019-08-31] MEDS: Dexamethasone 10 MG/ML VIAL IVP (13:57)
[2019-08-31 14:11] LABS: INR 2.7 (0.9-1.1); Prothrombin Time 26.2 sec (9.3-11.0)
[2019-08-31 14:12] LABS: ALT 23 U/L (14-59); AST 20 U/L (15-37); Albumin 3.9 g/dL (3.4-5.0); Alkaline Phosphatase 107 U/L (46-116); Anion Gap 8.6 mmol/L (3-11); BUN 26 mg/dL (7-18); Bilirubin, Total 0.5 mg/dL (0.2-1.0); CO2 26.4 mmol/L (21.0-32.0); CREATININE 1.54 mg/dL (0.55-1.02); Chloride 104 mmol/L (98-107); Estimated GFR 33.11 (mL/min/1.73m2); Glucose 107 mg/dL (74-106); Lipase 162 U/L (73-393); Magnesium 2.1 mg/dL (1.8-2.4); NT-proBNP 1630 pg/mL (<300); Potassium 4.1 mmol/L (3.5-5.1); Sodium 139 mmol/L (136-145); Total Protein 7.5 g/dL (6.4-8.2)
[2019-08-31 14:14] LABS: PTT Activated 39.3 sec (21.0-31.4)
[2019-08-31 14:15] LABS: Troponin I < 0.05 ng/Ml (<0.06)
--- NOTE | 2019-08-31 15:14 | NUR.NOTE ---
Nursing Note: Referral faxed to PCP for follow up. Rosalia Reynolds.
== END 2019-08-31 15:29 | disposition home or self-care (01) ==
PROVIDERS: Emergency Provider Emergency Medicine; PCP Family Medicine
DX: J44.1 Chronic obstructive pulmonary disease with (acute) exacerbation (principal); R07.9 Chest pain, unspecified; R06.02 Shortness of breath; Z79.01 Long term (current) use of anticoagulants; I48.91 Unspecified atrial fibrillation; I12.9 Hypertensive chronic kidney disease with stage 1 through stage 4 chronic kidney disease, or unspecified chronic kidney disease; N18.9 Chronic kidney disease, unspecified
CPT/HCPCS: 36415; 80053; 83690; 93005; 94640; 96374; 99285; 71045; 83735; 83880; 84484; 85025; 85610; 85730; 93010; J1100; J7620

== ENCOUNTER 2019-10-19 21:02 | Outpatient (REF) | payer MEDICARE, OTHER, SELFPAY ==
[2019-10-19 20:37] LABS: NT-proBNP 1372 pg/mL (<300); Potassium 3.8 mmol/L (3.5-5.1); TSH (W/Ref FT4) 2.76 uIU/mL (0.36-3.74)
[2019-10-19 20:49] LABS: Hemoglobin A1C 6.1 % (3.8-5.6)
== END 2019-10-19 21:22 ==
LOC: LBN 21:02
PROVIDERS: PCP Family Medicine; Visit Provider Family Medicine
DX: I10 Essential (primary) hypertension (principal); I50.32 Chronic diastolic (congestive) heart failure; E03.9 Hypothyroidism, unspecified; R73.9 Hyperglycemia, unspecified
CPT/HCPCS: 83036; 83880; 84132; 84443

== ENCOUNTER 2019-10-21 13:28 | Outpatient (REF) | payer MEDICARE, OTHER, SELFPAY ==
[2019-10-21 14:53] LABS: COMMENT (LAB VIEW ONLY) 77.49 mg/dL; Microalb ug/mg Crea 8.3 ug/mg Cr
== END 2019-10-21 13:48 ==
LOC: LBN 13:28
PROVIDERS: PCP Family Medicine; Visit Provider Family Medicine
DX: E11.9 Type 2 diabetes mellitus without complications (principal)
CPT/HCPCS: 82043; 82570

== ENCOUNTER 2019-10-28 04:07 | Outpatient (CLI) | payer MEDICARE, OTHER, SELFPAY ==
[2019-10-28 09:06] LABS: Prothrombin Time 20.1 sec (9.3-11.0)
== END 2019-10-28 04:27 ==
PROVIDERS: PCP Family Medicine; Visit Provider Family Medicine
DX: I48.91 Unspecified atrial fibrillation (principal); Z79.01 Long term (current) use of anticoagulants
CPT/HCPCS: 36415; 85610

== ENCOUNTER 2019-11-04 20:34 | Outpatient (REF) | payer MEDICARE, OTHER, SELFPAY ==
[2019-11-04 21:32] LABS: Anion Gap 8.7 mmol/L (3-11); BUN 42 mg/dL (7-18); CO2 29.3 mmol/L (21.0-32.0); CREATININE 1.81 mg/dL (0.55-1.02); Calcium 9.1 mg/dL (8.5-10.1); Chloride 101 mmol/L (98-107); Glucose 134 mg/dL (74-106); Potassium 3.6 mmol/L (3.5-5.1); Sodium 139 mmol/L (136-145)
== END 2019-11-04 20:54 ==
LOC: NCHCN 20:34
PROVIDERS: PCP Family Medicine; Visit Provider Family Medicine
DX: I50.32 Chronic diastolic (congestive) heart failure (principal)
CPT/HCPCS: 80048

== ENCOUNTER → 2019-11-23 10:34 | Outpatient (BNVA) | payer MEDICARE, OTHER, SELFPAY | PROVIDERS: PCP Family Medicine; Referring Provider Family Medicine; Visit Provider Surgery | DX: R10.32 Left lower quadrant pain (principal); K58.0 Irritable bowel syndrome with diarrhea; Z90.49 Acquired absence of other specified parts of digestive tract; Z95.0 Presence of cardiac pacemaker; Z79.01 Long term (current) use of anticoagulants | CPT/HCPCS: 99212; 99214 ==

== ENCOUNTER 2019-11-29 08:34 | Outpatient (CLI) | payer MEDICARE, OTHER, SELFPAY ==
--- NOTE | 2019-11-29 09:45 | DI.RAD_ITS ---
EXAM: RF BARIUM ENEMA CLINICAL HISTORY: diarrhea/pain,LLQ PAIN,R10.32 TECHNIQUE: COMPARISON: No exams were available for comparison FINDINGS: Barium was introduced to the rectum and flowed to the cecum. However there was limited passage bariu m proximally from the sigmoid colon. There was marked persists distant sigmoid spasm and there appea rs to be pronounced sigmoid muscular hypertrophy along with severe diverticulosis. No gross obstruct jude lesion identified. No significant mucosal lesion identified. Appendix and terminal ileum are no nvisualized. IMPRESSION: Limited visualization of colon proximal to the sigmoid due to severe muscular hypertrophy and spasm o f the sigmoid. No gross lesion identified.
[2019-11-29] MEDS: Barium Sulfate 60% W/V 355 ML BTL PO ×4 (12:07→12:09)
== END 2019-11-29 08:54 ==
PROVIDERS: PCP Family Medicine; Visit Provider Surgery
DX: R19.7 Diarrhea, unspecified (principal); R10.32 Left lower quadrant pain; K57.30 Diverticulosis of large intestine without perforation or abscess without bleeding
CPT/HCPCS: 74270

== ENCOUNTER → 2019-12-07 10:23 | Outpatient (BNVA) | payer MEDICARE, OTHER, SELFPAY | PROVIDERS: PCP Family Medicine; Referring Provider Family Medicine; Visit Provider Surgery | DX: K52.89 Other specified noninfective gastroenteritis and colitis (principal); K57.30 Diverticulosis of large intestine without perforation or abscess without bleeding; Z90.49 Acquired absence of other specified parts of digestive tract | CPT/HCPCS: 99213 ==

== ENCOUNTER 2020-01-09 02:15 | Outpatient (CLI) | payer MEDICARE, OTHER, SELFPAY ==
[2020-01-09 12:44] LABS: Anion Gap 9.6 mmol/L (3-11); BUN 44 mg/dL (7-18); CO2 29.4 mmol/L (21.0-32.0); CREATININE 2.06 mg/dL (0.55-1.02); Calcium 9.1 mg/dL (8.5-10.1); Chloride 100 mmol/L (98-107); Glucose 78 mg/dL (74-106); NT-proBNP 2072 pg/mL (<300); Potassium 3.8 mmol/L (3.5-5.1); Sodium 139 mmol/L (136-145)
== END 2020-01-09 02:35 ==
PROVIDERS: Nurse Practitioner; PCP Family Medicine; Visit Provider Family Medicine
DX: I50.32 Chronic diastolic (congestive) heart failure (principal); I48.91 Unspecified atrial fibrillation; Z79.01 Long term (current) use of anticoagulants
CPT/HCPCS: 36415; 80048; 83880

== ENCOUNTER 2020-01-16 03:04 | Outpatient (CLI) | payer MEDICARE, OTHER, SELFPAY ==
[2020-01-16 12:49] LABS: Anion Gap 10.5 mmol/L (3-11); BUN 37 mg/dL (7-18); CO2 27.5 mmol/L (21.0-32.0); CREATININE 1.75 mg/dL (0.55-1.02); Calcium 9.3 mg/dL (8.5-10.1); Chloride 101 mmol/L (98-107); Estimated GFR 28.49 (mL/min/1.73m2); Glucose 75 mg/dL (74-106); NT-proBNP 1555 pg/mL (<300); Potassium 4.2 mmol/L (3.5-5.1); Sodium 139 mmol/L (136-145)
== END 2020-01-16 03:24 ==
PROVIDERS: PCP Family Medicine; Visit Provider Nurse Practitioner
DX: I50.32 Chronic diastolic (congestive) heart failure (principal)
CPT/HCPCS: 36415; 80048; 83880

== ENCOUNTER → 2020-02-03 10:06 | Outpatient (BNVA) | payer MEDICARE, OTHER, SELFPAY | PROVIDERS: PCP Family Medicine; Referring Provider Family Medicine; Visit Provider Surgery | DX: K57.30 Diverticulosis of large intestine without perforation or abscess without bleeding (principal); Z90.49 Acquired absence of other specified parts of digestive tract; R10.32 Left lower quadrant pain; K52.9 Noninfective gastroenteritis and colitis, unspecified | CPT/HCPCS: 99213 ==

== ENCOUNTER → 2020-03-16 09:57 | Outpatient (BNVA) | payer MEDICARE, OTHER, SELFPAY | PROVIDERS: PCP Family Medicine; Referring Provider Family Medicine; Visit Provider Surgery | DX: R19.7 Diarrhea, unspecified (principal); R06.02 Shortness of breath; E87.70 Fluid overload, unspecified | CPT/HCPCS: 99213 ==

== ENCOUNTER 2020-03-16 11:26 | Outpatient (REF) | payer MEDICARE, OTHER, SELFPAY ==
[2020-03-16 11:37] LABS: Abs Immature Grans 0.02 10^3/uL (0.0-0.06); Absolute Basophil Count 0.03 10^3/uL (0.0-0.2); Absolute Eosinophil Count 0.16 10^3/uL (0.0-0.7); Absolute Lymphocyte Count 0.73 10^3/uL (1.2-3.4); Absolute Monocyte Count 0.44 10^3/uL (0.1-0.8); Absolute Neutrophil Count 6.27 10^3/uL (1.2-6.7); Basophils % 0.4; Eosinophils % 2.1; HCT 41.4 % (36.0-46.0); HGB 13.2 g/dL (11.2-15.7); Immature Grans % 0.3; Lymphocytes % 9.5; MCH 31.1 pg (27.0-33.0); MCHC 31.9 % (32.0-36.0); MCV 97.6 fL (80-95); MPV 11.2 fL (8.0-11.0); Monocytes % 5.8; Neutrophils % 81.9; Nucleated RBC 0 %; Platelet Count 203 10^3/uL (130-400); RBC 4.24 10^6/uL (3.93-5.22); RDW 16.8 % (11.7-14.6); RDW-SD 60.9 fL; WBC 7.65 10^3/uL (4.4-10.8)
[2020-03-16 11:42] LABS: INR 3.1 (0.9-1.1); Prothrombin Time 30.4 sec (9.3-11.0)
[2020-03-16 11:51] LABS: ALT 19 U/L (14-59); AST 14 U/L (15-37); Albumin 3.8 g/dL (3.4-5.0); Alkaline Phosphatase 110 U/L (46-116); Anion Gap 7.8 mmol/L (3-11); BUN 28 mg/dL (7-18); Bilirubin, Total 0.6 mg/dL (0.2-1.0); C-Reactive Protein 0.58 mg/dL (0.0-0.3); CO2 27.2 mmol/L (21.0-32.0); CREATININE 1.35 mg/dL (0.55-1.02); Calcium 9.6 mg/dL (8.5-10.1); Chloride 104 mmol/L (98-107); Estimated GFR 38.44 (mL/min/1.73m2); Glucose 104 mg/dL (74-106); NT-proBNP 1782 pg/mL (<300); Potassium 4.2 mmol/L (3.5-5.1); Sodium 139 mmol/L (136-145); Total Protein 7.5 g/dL (6.4-8.2)
== END 2020-03-16 11:46 ==
LOC: LBN 11:26
PROVIDERS: PCP Family Medicine; Visit Provider Surgery
DX: R10.32 Left lower quadrant pain (principal); I10 Essential (primary) hypertension; I48.91 Unspecified atrial fibrillation; Z79.01 Long term (current) use of anticoagulants; Z95.0 Presence of cardiac pacemaker; I50.32 Chronic diastolic (congestive) heart failure; K76.0 Fatty (change of) liver, not elsewhere classified; K57.30 Diverticulosis of large intestine without perforation or abscess without bleeding; E78.5 Hyperlipidemia, unspecified; N18.30 Chronic kidney disease, stage 3 unspecified
CPT/HCPCS: 80053; 83880; 85025; 85610; 86140

== ENCOUNTER 2020-04-02 02:19 | Outpatient (CLI) | payer MEDICARE, OTHER, SELFPAY ==
[2020-04-02 13:40] LABS: INR 2.5 (0.9-1.1); Prothrombin Time 24.2 sec (9.3-11.0)
== END 2020-04-02 02:39 ==
PROVIDERS: PCP Family Medicine; Visit Provider Family Medicine
DX: I48.91 Unspecified atrial fibrillation (principal); Z79.01 Long term (current) use of anticoagulants
CPT/HCPCS: 36415; 85610

== ENCOUNTER 2020-04-09 03:44 | Outpatient (CLI) | payer MEDICARE, OTHER, SELFPAY ==
[2020-04-09 12:30] LABS: INR 1.8 (0.9-1.1); Prothrombin Time 17.6 sec (9.3-11.0)
[2020-04-09 12:52] LABS: Anion Gap 8.6 mmol/L (3-11); BUN 49 mg/dL (7-18); CO2 28.4 mmol/L (21.0-32.0); CREATININE 1.81 mg/dL (0.55-1.02); Calcium 9.1 mg/dL (8.5-10.1); Chloride 101 mmol/L (98-107); Glucose 114 mg/dL (74-106); NT-proBNP 1788 pg/mL (<300); Potassium 3.3 mmol/L (3.5-5.1); Sodium 138 mmol/L (136-145)
== END 2020-04-09 04:04 ==
PROVIDERS: PCP Family Medicine; Visit Provider Nurse Practitioner
DX: I50.32 Chronic diastolic (congestive) heart failure (principal); I48.91 Unspecified atrial fibrillation; Z79.01 Long term (current) use of anticoagulants
CPT/HCPCS: 36415; 80048; 83880; 85610

== ENCOUNTER 2020-04-18 02:22 | Outpatient (CLI) | payer MEDICARE, OTHER, SELFPAY ==
[2020-04-18 12:49] LABS: INR 2.8 (0.9-1.1); Prothrombin Time 27.6 sec (9.3-11.0)
[2020-04-18 13:13] LABS: Anion Gap 8.2 mmol/L (3-11); BUN 38 mg/dL (7-18); CO2 28.8 mmol/L (21.0-32.0); CREATININE 1.74 mg/dL (0.55-1.02); Calcium 9.2 mg/dL (8.5-10.1); Chloride 101 mmol/L (98-107); Estimated GFR 28.68 (mL/min/1.73m2); Glucose 126 mg/dL (74-106); NT-proBNP 1393 pg/mL (<300); Potassium 4.2 mmol/L (3.5-5.1); Sodium 138 mmol/L (136-145)
== END 2020-04-18 02:42 ==
PROVIDERS: PCP Family Medicine; Visit Provider Nurse Practitioner
DX: I50.32 Chronic diastolic (congestive) heart failure (principal); I48.91 Unspecified atrial fibrillation; Z79.01 Long term (current) use of anticoagulants
CPT/HCPCS: 36415; 80048; 83880; 85610

== ENCOUNTER 2020-05-18 04:39 | Outpatient (CLI) | payer MEDICARE, OTHER, SELFPAY ==
[2020-05-18 13:46] LABS: INR 2.7 (0.9-1.1); Prothrombin Time 26.3 sec (9.3-11.0)
[2020-05-18 14:07] LABS: Hemoglobin A1C 5.8 % (<5.7)
== END 2020-05-18 04:59 ==
PROVIDERS: PCP Family Medicine; Visit Provider Family Medicine
DX: R73.9 Hyperglycemia, unspecified (principal); I48.91 Unspecified atrial fibrillation; Z79.01 Long term (current) use of anticoagulants
CPT/HCPCS: 36415; 83036; 85610

== ENCOUNTER 2020-06-18 02:29 | Outpatient (CLI) | payer MEDICARE, OTHER, SELFPAY ==
[2020-06-18 12:36] LABS: HCT 41.3 % (36.0-46.0); HGB 13.2 g/dL (11.2-15.7); MCH 29.5 pg (27.0-33.0); MCV 92.4 fL (80-95); MPV 10.8 fL (8.0-11.0); Platelet Count 330 10^3/uL (130-400); RBC 4.47 10^6/uL (3.93-5.22); RDW 16.8 % (11.7-14.6); WBC 11.13 10^3/uL (4.4-10.8)
[2020-06-18 12:52] LABS: Anion Gap 11.2 mmol/L (3-11); BUN 50 mg/dL (7-18); CO2 23.8 mmol/L (21.0-32.0); CREATININE 1.91 mg/dL (0.55-1.02); Calcium 8.8 mg/dL (8.5-10.1); Chloride 100 mmol/L (98-107); Estimated GFR 25.76 (mL/min/1.73m2); Glucose 102 mg/dL (74-106); Potassium 4.6 mmol/L (3.5-5.1); Sodium 135 mmol/L (136-145)
[2020-06-18 12:56] LABS: INR 3.7 (0.9-1.1); Prothrombin Time 35.6 sec (9.3-11.0)
== END 2020-06-18 02:49 ==
PROVIDERS: PCP Family Medicine; Visit Provider Family Medicine
DX: R53.83 Other fatigue (principal); D64.9 Anemia, unspecified; I48.91 Unspecified atrial fibrillation; Z79.01 Long term (current) use of anticoagulants
CPT/HCPCS: 36415; 80048; 85027; 85610

== ENCOUNTER 2020-06-27 04:00 | Outpatient (CLI) | payer MEDICARE, OTHER, SELFPAY ==
[2020-06-27 12:52] LABS: INR 3.3 (0.9-1.1); Prothrombin Time 32.1 sec (9.3-11.0)
== END 2020-06-27 04:20 ==
PROVIDERS: PCP Family Medicine; Visit Provider Family Medicine
DX: I48.91 Unspecified atrial fibrillation (principal); Z79.01 Long term (current) use of anticoagulants
CPT/HCPCS: 36415; 85610

== ENCOUNTER 2020-07-04 02:47 | Outpatient (CLI) | payer MEDICARE, OTHER, SELFPAY ==
[2020-07-04 12:38] LABS: INR 2.9 (0.9-1.1); Prothrombin Time 28.1 sec (9.3-11.0)
== END 2020-07-04 03:07 ==
PROVIDERS: PCP Family Medicine; Visit Provider Family Medicine
DX: I48.91 Unspecified atrial fibrillation (principal); Z79.01 Long term (current) use of anticoagulants
CPT/HCPCS: 36415; 85610

== ENCOUNTER 2020-07-18 02:51 | Outpatient (CLI) | payer MEDICARE, OTHER, SELFPAY ==
[2020-07-18 12:43] LABS: Anion Gap 9.3 mmol/L (3-11); BUN 52 mg/dL (7-18); CO2 25.7 mmol/L (21.0-32.0); CREATININE 1.9 mg/dL (0.55-1.02); Calcium 9.1 mg/dL (8.5-10.1); Chloride 103 mmol/L (98-107); Estimated GFR 25.91 (mL/min/1.73m2); Glucose 88 mg/dL (74-106); Potassium 4.5 mmol/L (3.5-5.1); Sodium 138 mmol/L (136-145)
[2020-07-18 12:45] LABS: INR 2.5 (0.9-1.1); Prothrombin Time 24.8 sec (9.3-11.0)
== END 2020-07-18 02:52 | disposition home or self-care (01) ==
LOC: LOS 02:51
PROVIDERS: PCP Family Medicine; Visit Provider Family Medicine
DX: E87.1 Hypo-osmolality and hyponatremia (principal); N28.9 Disorder of kidney and ureter, unspecified; I48.91 Unspecified atrial fibrillation; Z79.01 Long term (current) use of anticoagulants
CPT/HCPCS: 36415; 80048; 85610

== ENCOUNTER 2020-07-25 02:58 | Outpatient (CLI) | payer MEDICARE, OTHER, SELFPAY ==
[2020-07-25 13:04] LABS: INR 2.3 (0.9-1.1); Prothrombin Time 22.8 sec (9.3-11.0)
== END 2020-07-25 02:59 | disposition home or self-care (01) ==
LOC: LOS 02:58
PROVIDERS: PCP Family Medicine; Visit Provider Family Medicine
DX: I48.91 Unspecified atrial fibrillation (principal); Z79.01 Long term (current) use of anticoagulants
CPT/HCPCS: 36415; 85610

== ENCOUNTER 2020-08-09 03:56 | Outpatient (CLI) | payer MEDICARE, OTHER, SELFPAY ==
[2020-08-09 12:29] LABS: INR 2.7 (0.9-1.1); Prothrombin Time 26.9 sec (9.3-11.0)
== END 2020-08-09 03:57 | disposition home or self-care (01) ==
LOC: LOS 03:56
PROVIDERS: PCP Family Medicine; Visit Provider Family Medicine
DX: I48.91 Unspecified atrial fibrillation (principal); Z79.01 Long term (current) use of anticoagulants
CPT/HCPCS: 36415; 85610

== ENCOUNTER 2020-08-21 02:43 | Outpatient (CLI) | payer MEDICARE, OTHER, SELFPAY ==
[2020-08-21 13:14] LABS: Anion Gap 10.1 mmol/L (3-11); BUN 74 mg/dL (7-18); CO2 27.9 mmol/L (21.0-32.0); CREATININE 2.4 mg/dL (0.55-1.02); Chloride 99 mmol/L (98-107); Estimated GFR 19.79 (mL/min/1.73m2); Glucose 107 mg/dL (74-106); NT-proBNP 2942 pg/mL (<300); Potassium 4.1 mmol/L (3.5-5.1); Sodium 137 mmol/L (136-145)
== END 2020-08-21 02:44 | disposition home or self-care (01) ==
LOC: LOS 02:43
PROVIDERS: PCP Family Medicine; Visit Provider Nurse Practitioner
DX: I50.32 Chronic diastolic (congestive) heart failure (principal)
CPT/HCPCS: 36415; 80048; 83880

== ENCOUNTER 2020-08-24 01:55 | Outpatient (CLI) | payer MEDICARE, OTHER, SELFPAY ==
[2020-08-24 12:43] LABS: Anion Gap 11.3 mmol/L (3-11); CO2 28.7 mmol/L (21.0-32.0); CREATININE 2.7 mg/dL (0.55-1.02); Calcium 9.6 mg/dL (8.5-10.1); Chloride 98 mmol/L (98-107); Estimated GFR 17.27 (mL/min/1.73m2); Glucose 95 mg/dL (74-106); NT-proBNP 2849 pg/mL (<300); Potassium 3.7 mmol/L (3.5-5.1); Sodium 138 mmol/L (136-145)
[2020-08-24 12:50] LABS: BUN 82 mg/dL (7-18)
== END 2020-08-24 01:56 | disposition home or self-care (01) ==
LOC: LOS 01:55
PROVIDERS: PCP Family Medicine; Visit Provider Nurse Practitioner
DX: I50.32 Chronic diastolic (congestive) heart failure (principal)
CPT/HCPCS: 36415; 80048; 83880

== ENCOUNTER 2020-09-05 03:21 | Outpatient (CLI) | payer MEDICARE, OTHER, SELFPAY ==
[2020-09-05 12:54] LABS: Anion Gap 4.9 mmol/L (3-11); BUN 65 mg/dL (7-18); CO2 28.1 mmol/L (21.0-32.0); CREATININE 2.5 mg/dL (0.55-1.02); Calcium 9.6 mg/dL (8.5-10.1); Chloride 100 mmol/L (98-107); Estimated GFR 18.88 (mL/min/1.73m2); Glucose 82 mg/dL (74-106); Potassium 3.8 mmol/L (3.5-5.1); Sodium 133 mmol/L (136-145)
[2020-09-05 13:02] LABS: INR 2.3 (0.9-1.1); Prothrombin Time 22.9 sec (9.3-11.0)
[2020-09-05 13:28] LABS: NT-proBNP 2139 pg/mL (<300)
== END 2020-09-05 03:22 | disposition home or self-care (01) ==
LOC: LOS 03:21
PROVIDERS: PCP Family Medicine; Visit Provider Nurse Practitioner
DX: I50.32 Chronic diastolic (congestive) heart failure (principal); I48.91 Unspecified atrial fibrillation; Z79.01 Long term (current) use of anticoagulants
CPT/HCPCS: 36415; 80048; 83880; 85610

== ENCOUNTER 2020-10-09 02:16 | Outpatient (CLI) | payer MEDICARE, OTHER, SELFPAY ==
[2020-10-09 13:07] LABS: INR 2.6 (0.9-1.1); Prothrombin Time 25.3 sec (9.3-11.0)
== END 2020-10-09 02:17 | disposition home or self-care (01) ==
LOC: LOS 02:16
PROVIDERS: PCP Family Medicine; Visit Provider Family Medicine
DX: I48.91 Unspecified atrial fibrillation (principal); Z79.01 Long term (current) use of anticoagulants
CPT/HCPCS: 36415; 85610

== ENCOUNTER 2020-11-15 08:59 | Inpatient (IN) | payer MEDICARE, OTHER, SELFPAY ==
[2020-11-15] VITALS (85 sets, daily range): BP systolic 76–123; BP diastolic 44–95; PULSE 52–208; RESP 13–35; TEMP 35.6–36.5; O2SAT 72–100
--- NOTE | 2020-11-15 09:00 | RT.EKG_ITS ---
APPROVED REPORT Exam: Resting ECG Reason for Exam: sob Patient Location: E HR:76 bpm ECG Measurements Heart Rate 76 AXIS NE 85 P [id number] QRSd 139 QRS 138 QT 436 T -1 QTc 491 Conclusion Regular sinus rythm, intraventricular conduction delay
--- NOTE | 2020-11-15 09:30 | DI.RAD_ITS ---
Exam(s) XR CHEST 2V PA LATERAL EXAM: XR CHEST 2V PA LATERAL CLINICAL HISTORY: shortness of breath TECHNIQUE: 2D digital imaging was performed. COMPARISON: CR XR PORTABLE CHEST AP from 08/31/2019 FINDINGS: The heart is enlarged. A pacemaker is again noted. There is a small to moderate-sized left pleural effusion. There is vascular prominence and increased interstitial markings, consistent with CHF. No focal infiltrate is visible. IMPRESSION: Left pleural effusion and CHF. DATA REPOSITORY: RADIATION DOSE DELIVERED:
[2020-11-15 09:49] LABS: BE (Venous) -2 mmol/L (-2-3); HCO3 (Venous) 25 mmol/L (23-28); O2 Sat (Venous) 59 %; TCO2 (Venous) 24 mmol/L (24-29); pCO2 (Venous) 55 mmHg (41-51); pH (Venous) 7.27 (7.31-7.41); pO2 (Venous) 36 mmHg
[2020-11-15 09:51] LABS: Lactate 1.1 mmol/L (0.6-1.4)
[2020-11-15 09:53] LABS: Abs Immature Grans 0.06 10^3/uL (0.0-0.06); Absolute Basophil Count 0.05 10^3/uL (0.0-0.2); Absolute Eosinophil Count 0.13 10^3/uL (0.0-0.7); Absolute Lymphocyte Count 0.83 10^3/uL (1.2-3.4); Absolute Monocyte Count 0.51 10^3/uL (0.1-0.8); Absolute Neutrophil Count 7.03 10^3/uL (1.2-6.7); Basophils % 0.6; Eosinophils % 1.5; HCT 35.4 % (36.0-46.0); HGB 10.3 g/dL (11.2-15.7); Immature Grans % 0.7; Lymphocytes % 9.6; MCH 25.8 pg (27.0-33.0); MCHC 29.1 % (32.0-36.0); MCV 88.7 fL (80-95); MPV 10.2 fL (8.0-11.0); Monocytes % 5.9; Neutrophils % 81.7; Nucleated RBC 0 %; Platelet Count 236 10^3/uL (130-400); RBC 3.99 10^6/uL (3.93-5.22); RDW 19.3 % (11.7-14.6); RDW-SD 61.3 fL; WBC 8.61 10^3/uL (4.4-10.8)
[2020-11-15 10:04] LABS: INR 2.4 (0.9-1.1); Prothrombin Time 23.5 sec (9.3-11.0)
[2020-11-15] MEDS: Albuterol/Ipratropium 3 ML UPD VIAL UPD (10:04)
[2020-11-15 10:06] LABS: Source Nasal/Nares
[2020-11-15 10:17] LABS: ALT 15 U/L (14-59); AST 13 U/L (15-37); Albumin 3.8 g/dL (3.4-5.0); Alkaline Phosphatase 88 U/L (46-116); Anion Gap 9.5 mmol/L (3-11); BUN 74 mg/dL (7-18); Bilirubin, Total 0.6 mg/dL (0.2-1.0); CO2 25.5 mmol/L (21.0-32.0); CREATININE 2.6 mg/dL (0.55-1.02); Calcium 9.2 mg/dL (8.5-10.1); Chloride 104 mmol/L (98-107); Estimated GFR 17.99 (mL/min/1.73m2); Glucose 118 mg/dL (74-106); Magnesium 2.6 mg/dL (1.8-2.4); NT-proBNP 3840 pg/mL (<300); Potassium 4.8 mmol/L (3.5-5.1); Sodium 139 mmol/L (136-145); Total Protein 7.1 g/dL (6.4-8.2); Troponin I < 0.05 ng/mL (<0.06)
--- NOTE | 2020-11-15 10:23 | ED.GENADUL_ITS ---
Discharge Plan Discharge Details Chief Complaint: SOB Admit Date/Time: 11/15/20 11:55 Admit Provider: Wilber Moreno Attending Provider: Wilber Moreno Primary Care Provider: Connor Medley ED Provider: Liset Blas Medical Decision Making No evidence of pneumonia Low suspicion for PE, INR 2.4, therapeutic Evidence of volume overload clinically, given 80 mg of Lasix IV and will be started on Lasix infusion for CRPS type exacerbation No evidence of pneumonia Will order repeat urinalysis as initial urinalysis is contaminated, will place Saenz catheter Unable to initiate nitroglycerin as patient is on isosorbide which she has taken Afebrile Initially in respiratory distress with hypoxia, 72%, tolerating 1 L of oxygen well, 90 to 91%, given nebulizer treatment and wheezing has diminished however patient still experiencing crackles bilaterally Patient will need admission to the hospital for hypoxia and CHF exacerbation She is agreeable to admission at this time Her troponin is negative and EKG does not show evidence of ischemia Case was discussed with Dr. Abdi who is willing to admit patient, she will be placed in the intensive care unit Differential Diagnosis Differential Diagnosis: CHF, pulmonary embolism, pneumonia, COPD Medical Records Medical records reviewed: Yes I reviewed the patient's medical records. Lab Data Lab results reviewed: Yes I reviewed the patient's lab results. HPI General Mode of arrival: ambulatory . Date/Time Provider Initiated Documentation: 11/15/20 09:19 . Limitations to Documentation: no limitations . Information obtained by: patient . HPI Narrative: 75-year-old female with history of COPD, CHF, dysrhythmia, chronic anticoagulation, tricuspid regurgitation, mitral regurgitation, with pacemaker presents with report of worsening shortness of breath, weight gain, peripheral edema in the past 3 weeks. She states she has had a 9 pound weight gain in significant shortness of breath with exertion. She states that Related Data Home Medications Medication Instructions Recorded Confirmed Gas-X 1 strip PO PRN 09/27/12 02/03/20 acetaminophen [Tylenol Extra 500 mg PO PRN PRN 08/30/17 11/15/20 Strength] diphenhydramine 25 2 tab PO HS PRN tab 05/19/18 11/15/20 mg-acetaminophen 500 mg tablet lorazepam 0.5 mg tablet 0.5 mg PO Q12H PRN #20 tab 05/19/18 11/15/20 nystatin 100,000 unit/gram topical 1 applic TP BID PRN #30 gm 02/16/19 11/15/20 powder torsemide 100 mg tablet 100 mg PO DAILY tab-cap 09/02/19 11/15/20 isosorbide dinitrate 5 mg tablet 10 mg PO BID #120 tab 11/18/19 11/15/20 metoprolol succinate 50 mg 50 mg PO DAILY #90 tab 11/18/19 11/15/20 tablet,extended release 24 hr psyllium husk 0.4 gram capsule 0.4 gm PO DAILY 11/23/19 11/15/20 nitroglycerin 0.4 mg sublingual 0.4 mg SL Q5-15M PRN #25 tab 12/16/19 11/15/20 tablet albuterol sulfate 90 mcg/actuation 2 puff INHALATION Q4H PRN #1 12/30/19 11/15/20 aerosol inhaler inhaler trazodone 50 mg tablet 50 mg PO HS PRN #90 tab 01/04/20 11/15/20 spironolactone 25 mg tablet 25 mg PO DAILY #90 tab 01/24/20 11/15/20 IBguard See Rx Instructions PO DAILY 01/31/20 02/03/20 allopurinol 100 mg tablet 200 mg PO DAILY #180 tab 01/31/20 11/15/20 clotrimazole-betamethasone 1 1 applic TP BID PRN #30 gm 01/31/20 11/15/20 %-0.05 % topical cream donepezil 10 mg tablet 10 mg PO DAILY #90 tab 01/31/20 11/15/20 levothyroxine 88 mcg capsule 88 mcg PO DAILY #90 cap 01/31/20 11/15/20 sertraline 100 mg tablet 150 mg PO DAILY #135 tab 04/03/20 11/15/20 venlafaxine 37.5 mg 37.5 mg PO DAILY #90 cap 09/05/20 11/15/20 capsule,extended release 24 hr folic acid 1 mg tablet 1 mg PO DAILY #100 tab 10/05/20 11/15/20 dicyclomine 10 mg capsule 10 mg PO TID PRN #30 cap 10/26/20 11/15/20 metolazone 2.5 mg PO DIRECTED PRN 11/15/20 11/15/20 potassium chloride [Klor-Con 10] 30 meq PO BID 11/15/20 11/15/20 warfarin 0.5 mg PO HS 11/15/20 11/15/20 Previous Rx's Medication Instructions Recorded lorazepam 0.5 mg tablet 0.5 mg PO Q12H PRN #20 tab 05/19/18 nystatin 100,000 unit/gram topical 1 applic TP BID PRN #30 gm 02/16/19 powder isosorbide dinitrate 5 mg tablet 10 mg PO BID #120 tab 11/18/19 metoprolol succinate 50 mg 50 mg PO DAILY #90 tab 11/18/19 tablet,extended release 24 hr nitroglycerin 0.4 mg sublingual 0.4 mg SL Q5-15M PRN #25 tab 12/16/19 tablet albuterol sulfate 90 mcg/actuation 2 puff INHALATION Q4H PRN #1 12/30/19 aerosol inhaler inhaler trazodone 50 mg tablet 50 mg PO HS PRN #90 tab 01/04/20 spironolactone 25 mg tablet 25 mg PO DAILY #90 tab 01/24/20 allopurinol 100 mg tablet 200 mg PO DAILY #180 tab 01/31/20 clotrimazole-betamethasone 1 1 applic TP BID PRN #30 gm 01/31/20 %-0.05 % topical cream donepezil 10 mg tablet 10 mg PO DAILY #90 tab 01/31/20 levothyroxine 88 mcg capsule 88 mcg PO DAILY #90 cap 01/31/20 sertraline 100 mg tablet 150 mg PO DAILY #135 tab 04/03/20 venlafaxine 37.5 mg 37.5 mg PO DAILY #90 cap 09/05/20 capsule,extended release 24 hr folic acid 1 mg tablet 1 mg PO DAILY #100 tab 10/05/20 dicyclomine 10 mg capsule 10 mg PO TID PRN #30 cap 10/26/20 Allergies Allergy/AdvReac Type Severity Reaction Status Date / Time fluoxetine HCl [From Prozac] Allergy Mild Hives Unverified 11/15/20 11:04 prednisone AdvReac Severe PSYCHOSIS Unverified 11/15/20 11:04 amlodipine AdvReac Unknown EDEMA Unverified 11/15/20 11:04 General Stated Complaint: SOB SANAZ: 2 Review of Systems Narrative: ROs obtained x7 aside from indication in HPI PFSH Medical History (Updated 03/21/20 @ 09:03 by Cristina Smith DO) Chronic diarrhea Chronic diarrhea Diverticula of colon IBS (irritable bowel syndrome) LLQ abdominal pain Post-cholecystectomy syndrome Shortness of breath Surgical History (Updated 12/09/19 @ 16:15 by Cristina Smith DO) Abdominal hysterectomy Bilateral salpingectomy with oophorectomy Cholecystectomy Pacemaker S/P laparoscopic cholecystectomy Family History Mother , age 60 Heart disease Father No problems noted. Brother , age 52 Lung cancer Depression Hypertension Brother , age 47 No problems noted. Social History Smoking/Tobacco Use Status: Former Tobacco Use Pack-years: 10 Tobacco: How many years used: 31 Smoking risk assessment performed?: Yes Alcohol Intake: never Drug use: Never Substance use type: does not use Caregiver/Support person: No Household members: spouse Communication Needs: Hard of Hearing and Corrective Lenses Do you need help understanding health information?: Rarely Pets and animals: No Do you think of yourself as: straight/heterosexual What is your relationship status?: How often do you talk on the phone with friends or family?: three or more times per week How often do you get together with friends or relatives?: once per week How often do you attend yazdanism or buddhism services?: 1-3 times per year Do you belong to any clubs or organized social groups?: no Panel score (0-1 are the most socially isolated patients): 2 What type of physical activity do you participate in: none Frequency: does not exercise Maricruz/Episcopalian: Taoism Special maricruz needs: No Seatbelt use: always Helmet use: No 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 Do you feel safe at home: Yes Do you feel safe in your relationship?: Yes Exam Const Orientation: alert and oriented x3 Eyes Pupils: PERRL Neck Neck: JVD Chest Chest: normal inspection of the chest Resp Effort & Inspection: respiratory distress and retractions Auscultation: crackles, diminished lung sounds and wheezes Cardio Rate: regular rate Rhythm: regular rhythm Heart Sounds: murmur GI Other: non-tender Skin General skin exam: no rashes or lesions noted Neuro General: patient alert and patient oriented x3 Extrem Other: 2+ edema to bilateral lower extremities Course Vital Signs Vital signs: Vital Signs Temperature 36.5 C 11/15/20 09:28 Pulse 76 11/15/20 09:28 Respiratory Rate 28 H 11/15/20 09:28 Blood Pressure 96/73 L 11/15/20 09:28 Pulse Oximetry 72 L 11/15/20 09:28 Temperature 36.5 C 11/15/20 09:28 Pulse 76 11/15/20 09:28 Respiratory Rate 18 11/15/20 09:35 Respiratory Effort 11/15/20 09:40 Respiratory Depth Normal 11/15/20 09:35 Respiratory Pattern Normal 11/15/20 09:35 Blood Pressure 96/73 L 11/15/20 09:28 Blood Pressure Position Sitting 11/15/20 09:28 Pulse Oximetry 93 11/15/20 09:43 Oxygen Delivery Method Nasal Cannula 11/15/20 09:43 Oxygen Flow Rate 1 11/15/20 09:43 Comment 11/15/20 09:28 Lab/Test Results Lab/Test Results: Laboratory Tests Range/Units 11/15/20 11/15/20 11/15/20 09:40 09:40 09:40 WBC (4.4-10.8) 10^3/uL 8.61 RBC (3.93-5.22) 10^6/uL 3.99 Hgb (11.2-15.7) g/dL 10.3 L Hct (36.0-46.0) % 35.4 L MCV (80-95) fL 88.7 MCH (27.0-33.0) pg 25.8 L MCHC (32.0-36.0) % 29.1 L RDW (11.7-14.6) % 19.3 H Plt Count (130-400) 10^3/uL 236 MPV (8.0-11.0) fL 10.2 Immature Gran % 0.7 Neutrophils % 81.7 Lymphocytes % 9.6 Monocytes % 5.9 Eosinophils % 1.5 Basophils % 0.6 Nucleated RBC % % 0 Absolute Neutrophils (1.2-6.7) 10^3/uL 7.03 H Absolute Lymphocytes (1.2-3.4) 10^3/uL 0.83 L Absolute Monocytes (0.1-0.8) 10^3/uL 0.51 Absolute Eosinophils (0.0-0.7) 10^3/uL 0.13 Absolute Basophils (0.0-0.2) 10^3/uL 0.05 PT (9.3-11.0) sec INR (0.9-1.1) VBG pH (7.31-7.41) VBG pCO2 (41-51) mmHg VBG pO2 mmHg VBG HCO3 (23-28) mmol/L VBG Total CO2 (24-29) mmol/L VBG O2 Saturation % VBG Base Excess (-2-3) mmol/L VBG Lactate (0.6-1.4) mmol/L 1.1 Sodium (136-145) mmol/L 139 Potassium (3.5-5.1) mmol/L 4.8 Chloride (98-107) mmol/L 104 Carbon Dioxide (21.0-32.0) mmol/L 25.5 Anion Gap (3-11) mmol/L 9.5 BUN (7-18) mg/dL 74 H Creatinine (0.55-1.02) mg/dL 2.6 H Estimated GFR/1.73 m2 (mL/min/1.73m2) 17.99 Glucose (74-106) mg/dL 118 H Calcium (8.5-10.1) mg/dL 9.2 Magnesium (1.8-2.4) mg/dL 2.6 H Total Bilirubin (0.2-1.0) mg/dL 0.6 AST (15-37) U/L 13 L ALT (14-59) U/L 15 Alkaline Phosphatase (46-116) U/L 88 Troponin I (<0.06) ng/mL < 0.05 NT-Pro-B Natriuret Pep (<300) pg/mL 3840 H Total Protein (6.4-8.2) g/dL 7.1 Albumin (3.4-5.0) g/dL 3.8 COVID-19 Source Range/Units 11/15/20 11/15/20 11/15/20 09:40 09:40 09:48 WBC (4.4-10.8) 10^3/uL RBC (3.93-5.22) 10^6/uL Hgb (11.2-15.7) g/dL Hct (36.0-46.0) % MCV (80-95) fL MCH (27.0-33.0) pg MCHC (32.0-36.0) % RDW (11.7-14.6) % Plt Count (130-400) 10^3/uL MPV (8.0-11.0) fL Immature Gran % Neutrophils % Lymphocytes % Monocytes % Eosinophils % Basophils % Nucleated RBC % % Absolute Neutrophils (1.2-6.7) 10^3/uL Absolute Lymphocytes (1.2-3.4) 10^3/uL Absolute Monocytes (0.1-0.8) 10^3/uL Absolute Eosinophils (0.0-0.7) 10^3/uL Absolute Basophils (0.0-0.2) 10^3/uL PT (9.3-11.0) sec 23.5 H INR (0.9-1.1) 2.4 H VBG pH (7.31-7.41) 7.27 L VBG pCO2 (41-51) mmHg 55 H VBG pO2 mmHg 36 VBG HCO3 (23-28) mmol/L 25 VBG Total CO2 (24-29) mmol/L 24 VBG O2 Saturation % 59 VBG Base Excess (-2-3) mmol/L -2 VBG Lactate (0.6-1.4) mmol/L Sodium (136-145) mmol/L Potassium (3.5-5.1) mmol/L Chloride (98-107) mmol/L Carbon Dioxide (21.0-32.0) mmol/L Anion Gap (3-11) mmol/L BUN (7-18) mg/dL Creatinine (0.55-1.02) mg/dL Estimated GFR/1.73 m2 (mL/min/1.73m2) Glucose (74-106) mg/dL Calcium (8.5-10.1) mg/dL Magnesium (1.8-2.4) mg/dL Total Bilirubin (0.2-1.0) mg/dL AST (15-37) U/L ALT (14-59) U/L Alkaline Phosphatase (46-116) U/L Troponin I (<0.06) ng/mL NT-Pro-B Natriuret Pep (<300) pg/mL Total Protein (6.4-8.2) g/dL Albumin (3.4-5.0) g/dL COVID-19 Source Nasal/nares Critical Care Time Critical Care Time Critical Care Time: Yes Total Critical Care Time: 35 Attestation: Telemetry monitoring, nebulizer treatment, IV Lasix, oxygen therapy, IV Lasix infusion, admission to the
[2020-11-15 10:26] LABS: Bilirubin Negative (Negative); Blood Moderate (Negative); Clarity Sl Cloudy (Clear); Glucose Negative (Negative); Ketones Negative (Negative); Leukocyte Esterase Trace (Negative); Nitrite Negative (Negative); Specific Gravity 1.015 (1.005-1.025); Urobilinogen 0.2 EU/dL (Up TO 0.2); pH 5.5 (5-8)
[2020-11-15 10:39] LABS: WBC 20-50 HPF (0-5)
[2020-11-15 10:40] LABS: TSH (W/Ref FT4) 3.18 uIU/mL (0.36-3.74)
[2020-11-15 10:40] LABS: Bacteria Many HPF (Negative); Epithelial Cells Few HPF (Negative); Mucus Negative (Negative)
[2020-11-15 10:41] LABS: C & S Indicated? No/Sq. Contamination
[2020-11-15 11:04] LABS: COVID-19 PCR Negative (Negative)
--- NOTE | 2020-11-15 12:04 | W.PM.HP.N ---
Date of service: 11/15/20 Time of Service: 12:04 Assessment and Plan Assessment and plan (1) Acute on chronic congestive heart failure: Status: Acute Assessment and plan: prior hx of HFPEF as per her echo from 2019 at [facility] LVEF was 72% at the time but w/ recent cardiac cath her CO and CI were low. Repeat echo done today to evaluate her LV and RV function. She has severe pulmonary hypertension w/ RV 90/40 mm, PCWP 20. She now presents w/ acute worsening heart failure w/ pulmonary edema, rising BNP and 9 lb wt gain over 3 wks and increasing leg edema. I have put her on lasix drip and have ordered zaroxolyn. Her troponins are negative so I do not feel that she has had an ischemic event, however she only had a right heart cath in September, no left heart cath and no recent stress MPI (last nuclear stress MPI was at [facility] in 2016). Depending on what her echo shows in terms of LV function will help determine whether or not a left heart cath is needed. If there has been some RWMA then I would favor her going to [facility] for left heart cath to rule out ischemia. She has been having chest heaviness which may just be her CHF. Her med list includes isosorbide (our computer list) but her [facility] med list from September does not and she was put on Revatio after her right heart cath by the pulmonary hypertension clinic. Nitrates are contraindicated when taking Sildenafil. I have put her isosorbide on hold but this should be stricken from her meds. She says that she used to take nitroglycerin but she knows not to take this since going on Sildenafil. 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 Qualifiers: Heart failure type: right-sided Qualified Code(s): I50.813 - Acute on chronic right heart failure (2) Heart failure with reduced ejection fraction: Status: Chronic Assessment and plan: I have put her on dobutamine drip at low dose and lasix drip. she seems to be diuresing quite well. Over 200 mL/hr (3) Atrial fibrillation: Status: Chronic Assessment and plan: patient is well controlled w/ her Toprol XL w/ hr in the 60's. she is adequately anticoagulated w/ INR of 2.4 on warfarin of 2.5 mg nightly Qualifiers: Atrial fibrillation type: unspecified Qualified Code(s): I48.91 - Unspecified atrial fibrillation (4) Pulmonary hypertension: Status: Chronic Assessment and plan: cont. Sildenafil (Revatio) 20 mg tid. Will ask patient's family to bring in. (5) Renal insufficiency: Status: Acute (6) Hypothyroidism: Status: Acute Assessment and plan: recheck her TFT's otherwise cont. current dose of levothyroxine (7) Anticoagulated on warfarin: Status: Acute Assessment and plan: therapeutic on her INR. continue current dose of 2.5 mg nightly (8) CKD (chronic kidney disease) stage 3, GFR 30-59 ml/min: Status: Chronic Assessment and plan: she has acute worsening of her ckd w/ rising BUN and creatinine now up to 74 and 2.6 (baseline is 52 and 1.9). History of Present Illness History of Present Illness Chief Complaint: dyspnea and chest pressure Narrative: 75 yr old female w/ PMH of former smoker w/ essential HTN and pulonary HTN, mod. severe TR, mild MR, HFPEF (LVEF72% per echo @ [facility] January 02, 2020) who underwent a right heart catheterization 09/17/2020 for evaluation of PHTN (see cardiac cath report for details but patient w/ severe PHTN (PAP 90/40 and reduced CO 2.53 (Yaw), 3.26 (thermodilution) and incr. PCWP mean 22). Patient presents to the ER w/ several weeks of increasing dyspnea and chest pressure w/ orthopnea and bilateral leg edema and 9# wt gain over last 3 wks. She was hypoxemic on arrival at 80% but dropped to as low as 72%. CXR demonstrated cardiomegaly and mod. large left pleural effusion and evidence of pacer wires. EKG demonstrates afib w/ ventricular pacing 76 ppm. BNP 3840 and troponin I <0.05, BUN 74, creatinine 2.6 (baseline 26, and 1.54). She was treated w/ supplemental oxygen 1 LPM and given lasix 80 mg IVP and was started on lasix drip at 10 mg/hr. She was also given a DuoNeb aerosol for wheezing. She is now being admitted for acute exacerbation of chronic CHF and PHTN and DANNY, she is being r/o for ACS, first two troponin levels were negative. Her last stress MPI was in 01/20/2017 at [facility] and showed no ischemic HD. Review of Systems Constitutional Constitutional: Reports fatigue, Reports malaise and Reports weight gain (10 lbs) Eyes Eyes: Reports floaters, Reports itchy eyes and Reports other (wears glasses; been seeing occasional anderson spots) ENT Ears, Nose, Mouth, and Throat: Reports abnormal hearing (very hard of hearing; does not wear hearing aids), Reports dysphagia (at times feels like food gets stuck) and Reports dizziness Cardiovascular Cardiovascular: Reports as per HPI, Reports chest pain, Reports chest pain at rest, Denies syncope, Reports irregular heart rhythm, Reports lightheadedness, Reports dyspnea and Reports dyspnea on exertion Respiratory Respiratory: Reports as per HPI, Denies chest congestion, Denies cough, Reports dyspnea and Reports dyspnea on exertion Gastrointestinal Gastrointestinal: Reports system reviewed and no additional complaints, except as documented, Reports change in bowel habits, Reports constipation (improved w/ metamucil) and Reports dysphagia (at times feels like food gets stuck) Genitourinary Genitourinary: Reports system reviewed and no additional complaints, except as documented Musculoskeletal Musculoskeletal: Reports system reviewed and no additional complaints, except as documented, Reports arthralgias and Reports stiffness (hands and knees) Integumentary/Breasts Skin/Breast: Reports system reviewed and no additional complaints, except as documented and Reports unusual bruising Neurologic Neurologic: Reports system reviewed and no additional complaints, except as documented, Reports abnormal hearing (very hard of hearing; does not wear hearing aids), Reports dizziness, Denies syncope and Reports paresthesias (over her feet) Psychiatric Psychiatric: Reports depression (related to her health; worse over past 6 months) Endocrine Endocrine: Reports system reviewed and no additional complaints, except as documented, Reports cold intolerance, Reports fatigue, Denies polydipsia and Denies polyuria Hematologic/Lymphatic Hematologic/Lymphatic: Reports easy bruising Allergic/Immunologic Allergic/Immunologic: Reports itchy eyes [facility] Medical History (Updated 11/15/20 @ 18:24 by Wilber Moreno) Atrial fibrillation Chronic diarrhea Chronic diarrhea Diverticula of colon Family history of coronary arteriosclerosis Heart failure with reduced ejection fraction IBS (irritable bowel syndrome) LLQ abdominal pain Post-cholecystectomy syndrome Pulmonary hypertension Tricuspid regurgitation 06/19/16 [facility] (3+/4+) Surgical History (Updated 11/15/20 @ 17:35 by Wilber Moreno) Abdominal hysterectomy Bilateral salpingectomy with oophorectomy Cholecystectomy History of bilateral cataract extraction Pacemaker S/P laparoscopic cholecystectomy Family History (Updated 11/15/20 @ 15:54 by Wilber Moreno) Mother , age 60 Heart disease Father No problems noted. Brother , age 52 Lung cancer Depression Hypertension Brother , age 47 No problems noted. Other Family history of coronary arteriosclerosis Social History Smoking/Tobacco Use Status: Former Tobacco Use Pack-years: 10 Tobacco: How many years used: 31 Smoking risk assessment performed?: Yes Alcohol Intake: never Drug use: Never Substance use type: does not use Caregiver/Support person: No Household members: spouse Communication Needs: Hard of Hearing and Corrective Lenses Do you need help understanding health information?: Rarely Pets and animals: No Do you think of yourself as: straight/heterosexual What is your relationship status?: How often do you talk on the phone with friends or family?: three or more times per week How often do you get together with friends or relatives?: once per week How often do you attend anabaptist or mormonism services?: 1-3 times per year Do you belong to any clubs or organized social groups?: no Panel score (0-1 are the most socially isolated patients): 2 What type of physical activity do you participate in: none Frequency: does not exercise Maricruz/Buddhist: Bahai Special maricruz needs: No Seatbelt use: always Helmet use: No Drive intox or ride w/intox parts driver: No Do you feel safe at home: Yes Do you feel safe in your relationship?: Yes Meds Allergies and Home Medications Allergies Allergy/AdvReac Type Severity Reaction Status Date / Time fluoxetine HCl [From Prozac] Allergy Mild Hives Unverified 11/15/20 11:04 prednisone AdvReac Severe PSYCHOSIS Unverified 11/15/20 11:04 amlodipine AdvReac Unknown EDEMA Unverified 11/15/20 11:04 Home Medications Medication Instructions Recorded Confirmed Type Gas-X 1 strip PO PRN 09/27/12 02/03/20 History acetaminophen [Tylenol Extra 500 mg PO DAILY PRN 08/30/17 11/15/20 History Strength] diphenhydramine 25 2 tab PO HS PRN tab 05/19/18 11/15/20 History mg-acetaminophen 500 mg tablet nystatin 100,000 unit/gram topical 1 applic TP BID PRN #30 gm 02/16/19 11/15/20 Rx powder torsemide 100 mg tablet 100 mg PO DAILY tab-cap 09/02/19 11/15/20 History isosorbide dinitrate 5 mg tablet 10 mg PO BID #120 tab 11/18/19 11/15/20 Rx metoprolol succinate 50 mg 50 mg PO DAILY #90 tab 11/18/19 11/15/20 Rx tablet,extended release 24 hr psyllium husk 0.4 gram capsule 0.4 gm PO DAILY 11/23/19 11/15/20 History trazodone 50 mg tablet 50 mg PO HS PRN #90 tab 01/04/20 11/15/20 Rx IBguard See Rx Instructions PO DAILY 01/31/20 02/03/20 History allopurinol 100 mg tablet 200 mg PO DAILY #180 tab 01/31/20 11/15/20 Rx clotrimazole-betamethasone 1 1 applic TP BID PRN #30 gm 01/31/20 11/15/20 Rx %-0.05 % topical cream donepezil 10 mg tablet 10 mg PO DAILY #90 tab 01/31/20 11/15/20 Rx levothyroxine 88 mcg capsule 88 mcg PO DAILY #90 cap 01/31/20 11/15/20 Rx sertraline 100 mg tablet 150 mg PO DAILY #135 tab 04/03/20 11/15/20 Rx venlafaxine 37.5 mg 37.5 mg PO DAILY #90 cap 09/05/20 11/15/20 Rx capsule,extended release 24 hr folic acid 1 mg tablet 1 mg PO DAILY #100 tab 10/05/20 11/15/20 Rx dicyclomine 10 mg capsule 10 mg PO TID PRN #30 cap 10/26/20 11/15/20 Rx metolazone 2.5 mg PO QWEEK PRN 11/15/20 11/15/20 History potassium chloride [Klor-Con 10] 30 meq PO BID 11/15/20 11/15/20 History sildenafil (pulm.hypertension) 20 mg PO TID 11/15/20 11/15/20 History [Revatio] spironolactone 25 mg PO BID 11/15/20 11/15/20 History warfarin 2.5 mg PO HS 11/15/20 11/15/20 History Exam Const General: cooperative Nutritional Appearance: obese Orientation: alert, awake and oriented x3 [facility] Head: normal to inspection, no palpable skull fracture, normocephalic and atraumatic General nose exam: external nose normal Face and sinus: normal facial exam Mouth: oral mucosae normal Eyes General: appearance normal, both eyes and all related structures Alignment and Position: alignment normal Periorbital: periorbital findings normal Eyelids: eyelids normal Conjunctivae: conjunctivae normal Sclera: sclerae normal Cornea: corneas normal Pupils: PERRL EOM: EOM intact bilaterally Neck Neck: normal visual inspection, full ROM, no lymphadenopathy, trachea midline, supple and JVD Thyroid: thyroid normal Carotids: normal carotid upstroke Lymphatic: no lymphadenopathy noted Chest Chest: normal inspection of the chest, normal palpation of entire chest wall and pacemaker (under left clavicle) Resp Effort & Inspection: normal respiratory effort and able to speak in complete sentences Auscultation: diminished lung sounds on the left in the lower lung tuttle, rales bilaterally at the base, in the lower lung tuttle and 1/[address] up, no rhonchi and no wheezes Percussion: dullness Lower: left Cardio Jugular venous pressure: JVD Palpation: abnormal PMI displaced PMI Rate: regular rate Rhythm: abnormal rhythm irregularly irregular Bruits: no abdominal aortic bruits and no carotid bruits Pulses: brachial pulses present, radial pulses present, posterior tibial pulses present and dorsalis pedis present GI Inspection: normal to inspection and obesity Palpation: soft, no hepatosplenomegaly and no pulsatile masses Percussion: normal to percussion Auscultation: normal bowel sounds Back/Spine/Pelvis Back: no CVA tenderness Cervical Spine: normal cervical lordosis Thoracic/Lumbar Spine: thoracic and lumbar spine normal to inspection Skin General skin exam: no rashes or lesions noted and other (multiple bruises on arms) Lesions: no lesions Rashes: no rashes Neuro General: patient alert, patient awake and patient oriented x3 Cranial Nerves: CN's II-XI intact bilaterally, PERRL, accommodation normal and EOM intact bilaterally Cognition: normal cognition Speech: speech normal Motor: muscle tone normal throughout Extrem General: full ROM, capillary refill normal, no calf tenderness and edema Laterality: bilateral (2+ pitting) Right lower extremity: ankle Details: edema Details: pitting and 2+ Left lower extremity: edema Details: pitting and ankle Details: pitting edema Details: 2+ Psych Appearance: grossly normal and well kempt Mental Status: mental status grossly normal Speech and Movement: speech and movement normal Mood: congruent mood Affect: normal affect Attitude: cooperative Thought Process: normal Thought Content: normal Insight: insight good Judgment: judgment good Results Labs Result diagrams: 11/15/20 09:40 11/15/20 09:40 Labs: Laboratory Results - last 24 hr 11/15/20 11/15/20 11/15/20 09:40 09:40 09:40 WBC 8.61 RBC 3.99 Hgb 10.3 L Hct 35.4 L MCV 88.7 MCH 25.8 L MCHC 29.1 L RDW 19.3 H Plt Count 236 MPV 10.2 Immature Gran % 0.7 Neutrophils % 81.7 Lymphocytes % 9.6 Monocytes % 5.9 Eosinophils % 1.5 Basophils % 0.6 Nucleated RBC % 0 Absolute Neutrophils 7.03 H Absolute Lymphocytes 0.83 L Absolute Monocytes 0.51 Absolute Eosinophils 0.13 Absolute Basophils 0.05 PT INR VBG pH VBG pCO2 VBG pO2 VBG HCO3 VBG Total CO2 VBG O2 Saturation VBG Base Excess VBG Lactate 1.1 Sodium 139 Potassium 4.8 Chloride 104 Carbon Dioxide 25.5 Anion Gap 9.5 BUN 74 H Creatinine 2.6 H Estimated GFR/1.73 m2 17.99 Glucose 118 H Calcium 9.2 Magnesium 2.6 H Total Bilirubin 0.6 AST 13 L ALT 15 Alkaline Phosphatase 88 Troponin I < 0.05 NT-Pro-B Natriuret Pep 3840 H Total Protein 7.1 Albumin 3.8 TSH Urine Color Urine Clarity Urine pH Ur Specific [place] Urine Protein Urine Ketones Urine Blood Urine Nitrite Urine Bilirubin Urine Urobilinogen Ur Leukocyte Esterase Urine RBC Urine WBC Ur Epithelial Cells Urine Crystals Urine Bacteria Urine Casts Urine Mucus Urine Other Ur Culture Indicated? Urine Glucose COVID-19 Source SARS-CoV-2 (PCR) 11/15/20 11/15/20 11/15/20 09:40 09:40 09:46 WBC RBC Hgb Hct MCV MCH MCHC RDW Plt Count MPV Immature Gran % Neutrophils % Lymphocytes % Monocytes % Eosinophils % Basophils % Nucleated RBC % Absolute Neutrophils Absolute Lymphocytes Absolute Monocytes Absolute Eosinophils Absolute Basophils PT 23.5 H INR 2.4 H VBG pH 7.27 L VBG pCO2 55 H VBG pO2 36 VBG HCO3 25 VBG Total CO2 24 VBG O2 Saturation 59 VBG Base Excess -2 VBG Lactate Sodium Potassium Chloride Carbon Dioxide Anion Gap BUN Creatinine Estimated GFR/1.73 m2 Glucose Calcium Magnesium Total Bilirubin AST ALT Alkaline Phosphatase Troponin I NT-Pro-B Natriuret Pep Total Protein Albumin TSH 3.18 Urine Color Urine Clarity Urine pH Ur Specific [place] Urine Protein Urine Ketones Urine Blood Urine Nitrite Urine Bilirubin Urine Urobilinogen Ur Leukocyte Esterase Urine RBC Urine WBC Ur Epithelial Cells Urine Crystals Urine Bacteria Urine Casts Urine Mucus Urine Other Ur Culture Indicated? Urine Glucose COVID-19 Source SARS-CoV-2 (PCR) 11/15/20 11/15/20 09:48 10:00 WBC RBC Hgb Hct MCV MCH MCHC RDW Plt Count MPV Immature Gran % Neutrophils % Lymphocytes % Monocytes % Eosinophils % Basophils % Nucleated RBC % Absolute Neutrophils Absolute Lymphocytes Absolute Monocytes Absolute Eosinophils Absolute Basophils PT INR VBG pH VBG pCO2 VBG pO2 VBG HCO3 VBG Total CO2 VBG O2 Saturation VBG Base Excess VBG Lactate Sodium Potassium Chloride Carbon Dioxide Anion Gap BUN Creatinine Estimated GFR/1.73 m2 Glucose Calcium Magnesium Total Bilirubin AST ALT Alkaline Phosphatase Troponin I NT-Pro-B Natriuret Pep Total Protein Albumin TSH Urine Color Yellow Urine Clarity Sl cloudy Urine pH 5.5 Ur Specific [place] 1.015 Urine Protein Negative Urine Ketones Negative Urine Blood Moderate H Urine Nitrite Negative Urine Bilirubin Negative Urine Urobilinogen 0.2 Ur Leukocyte Esterase Trace H Urine RBC Urine WBC 20-50 H Ur Epithelial Cells Few Urine Crystals Urine Bacteria Many Urine Casts Urine Mucus Negative Urine Other Ur Culture Indicated? No/sq. contamination Urine Glucose Negative COVID-19 Source Nasal/nares SARS-CoV-2 (PCR) Negative Last Vital Signs Temp 36.4 C L 11/15/20 10:25 Pulse 74 11/15/20 10:31 Resp 18 11/15/20 11:20 BP 112/72 11/15/20 10:31 Pulse Ox 93 11/15/20 11:20 COVID-19 Screening Have you, or household traveled for leisure in last 14 days?: No Had IN PERSON contact w/suspected or confirmed C-19 person: No
--- NOTE | 2020-11-15 13:03 | DI.US_ITS ---
APPROVED REPORT EXAM: Comprehensive 2D, Doppler, and color-flow Echocardiogram Patient Location: In-Patient Room/Bed: [id number] Grain Handler: Miley Mclaughlin RDCS (AE) Indications: Acute/Chronic CHF, Severe PHTN, A Fib Other Information Study Quality: Fair. Technically limited study due to body habitus. Conclusion Left Ventricle : Left ventricular cavity is small. Left ventricular systolic function is normal There is normal left ventricular wall thickness. Flattened septum consistent with right ventricular volume overload. There is normal LV segmental wall motion. LVEF is 50-55%. Right Ventricle : Right ventricle is severely dilated. Right ventricular systolic function is grossly normal. The RVSP is 47.2 mmHg. Atria : The left atrium size is normal. Right atrium is severely dilated. Aortic Valve : Aortic valve is calcified. Number of aortic valve leaflets could not be assessed. Mild to moderate aortic regurgitation. Mild aortic stenosis. Peak aortic valve gradient is 28.7mmHg. High est mean aortic valve gradient is 15.2mmHg. Calculated BRISEYDA by the continuity equation is 1.51_cm2. Mitral Valve : Moderate mitral annular calcification. Mild to moderate mitral regurgitation. No evide nce of mitral valve stenosis. Tricuspid Valve : The tricuspid valve is normal in structure. Moderate tricuspid regurgitation. There is no tricuspid valve stenosis. Great Vessels : The aortic root is normal in size. The ascending aorta is mildly dilated. Aortic arch is not well visualized. The IVC collapses <50% with inspiration. Compared to study from [facility] on 01/02/2020, there is no significant change. The RVSP guzman s decreased from 58 to 47 mmHg. Wall motion Left Ventricle Left ventricular cavity is small. Left ventricular systolic function is normal There is normal left v entricular wall thickness. Flattened septum consistent with right ventricular volume overload. There is normal LV segmental wall motion. The left ventricular diastolic function is normal. There is no ve ntricular septal defect visualized. LVEF is 50-55%. Right Ventricle Right ventricle is severely dilated. Right ventricular systolic function is grossly normal. The RVSP is 47.2 mmHg. Pacemaker lead is present in the right ventricle. Atria The left atrium size is normal. Right atrium is severely dilated. The interatrial septum is intact wi th no evidence for an atrial septal defect. Aortic Valve Aortic valve is calcified. Number of aortic valve leaflets could not be assessed. Mild aortic stenosi s. Peak aortic valve gradient is 28.7mmHg. Highest mean aortic valve gradient is 15.2mmHg. Calculated BRISEYDA by the continuity equation is 1.51_cm2. Mild to moderate aortic regurgitation. Mitral Valve Moderate mitral annular calcification. No evidence of mitral valve stenosis. Mild to moderate mitral regurgitation. Tricuspid Valve The tricuspid valve is normal in structure. There is no tricuspid valve stenosis. Moderate tricuspid regurgitation. Pulmonic Valve Pulmonic valve is not well visualized. There is no pulmonic valvular stenosis. Trace to mild pulmonic regurgitation. Great Vessels The aortic root is normal in size. The ascending aorta is mildly dilated. Aortic arch is not well vis ualized. The IVC collapses <50% with inspiration. Pericardium There is no pericardial effusion. 2D Dimensions IVSD d PLAX 0.93 cm F: 0.6-1.0 LV Vol A2C d MOD 95.6 mL LVPW d PLAX 0.94 cm F: 0.6 - 1.0 LV Vol A4C d MOD 53.7 mL LVID d PLAX 3.70 cm F: 3.8 - 5.2 LV EF A4C MOD 50.3 % LVDs 2.75 cm F: 2.2 - 3.5 LV EF A2C MOD 54.7 % Ao Root d 2.72 cm F: 2.7 - 3.3 LV EF Biplane MOD 52.8 % RA Area A4C 27.79 cm2 SV 39.77 mL RA Vol/ BSA A4C s A-L 53.6 mL/m2 SV Index 21.52 mL/m2 Ao Asc Diam d 3.35 cm F: 2.3 - 3.1 LV EF Teichholz 50.7 % LVEF (Gustafson's) 52.83 % F: 54 - 74 LV Volume 58.00 mL F: 46 - 106 LV Volume Index 31.52 mL/m2 F: 29 - 61 LV Vol Biplane MOD 75.3 mL FS 25.25 % M-Mode TAPSE 1.60 cm (M/F) >1.7 LV Diastology MV E' medial 0.125 (>0.07 m/s) MV E Vmax 1.05 (0.4-1.3 m/s) LV E/e MED 8.35 (<14) MV E' lateral 0.126 (>0.1 m/s) LV E/e LAT 8.30 (<14) MV E/E' medial 8.37 MV E/E' lateral 8.31 Aortic Valve LVOT Area 2.84 cm2 AoV Area Vmax 1.51 cm2 LVOT Vmax 1.43 m/s AoV Area/ BSA (Vmax) 0.82 cm2/m2 LVOT Mean Bhavesh. 1.02 m/s BRISEYDA Mean Bhavesh. 1.57 cm2 LVOT Peak Grad 8.2 mmHg BRISEYDA Mean Bhavesh. Index 0.85 cm2/m2 LVOT Mean Grad 4.7 mmHg AR DT 2278 msec LVOT VTI 0.326 m AR PHT 661 msec LVOT Diam s 1.90 cm AoV Vmax 2.68 m/s Velocity Ratio 0.53 AoV Mean Bhavesh. 1.84 m/s AoV Peak Grad 28.7 mmHg LVOT SV 92.58 mL AoV Mean Grad 15.2 mmHg AoV VTI 0.519 m AoV Area VTI 1.78 cm2 AoV Area/ BSA (VTI) 0.96 cm/m2 Mitral Valve MV DT 338 (160-240 msec) MR Vmax 4.40 m/s MV PHT 98 msec MR VTI 1.407 m MV Area PHT 2.24 cm2 MR Peak Grad 77.4 mmHg MV VTI 0.386 m MR Mean Grad 49.3 mmHg MV VTI Annulus 0.386 m MR PISA Radius 0.55 cm MV Area VTI 2.40 (4.0-6.0 cm2) MR EROA 0.15 cm2 MR Aliasing Velocity 0.35 m/s MR PISA 1.89 cm2 Pulmonary Valve PV Vmax 1.03 (0.5-1.5 m/s) RVOT Peak Gr. 1.84 mmHg PV Peak Grad 4.2 mmHg RVOT Mean Gr. 0.85 mmHg PV Mean Grad 2.4 mmHg RVOT VTI 0.119 m PV VTI 0.228 m RVOT Vmax 0.68 m/s Tricuspid Valve TR Peak Grad 39.1 mmHg TR Vmax 3.13 m/s RA Pressure 8.00 mmHg RVSP (TR) 47.2 mmHg
[2020-11-15 13:05] LABS: Troponin I < 0.05 ng/mL (<0.06)
[2020-11-15 13:36] LABS: Bilirubin Negative (Negative); Blood Small (Negative); Clarity Clear (Clear); Glucose Negative (Negative); Ketones Negative (Negative); Leukocyte Esterase Negative (Negative); Nitrite Negative (Negative); Specific Gravity 1.015 (1.005-1.025); Urobilinogen 0.2 EU/dL (Up TO 0.2)
[2020-11-15 13:46] LABS: Bacteria Negative HPF (Negative); C & S Indicated? No; Casts Negative LPF (Negative); Crystals Negative HPF (Negative); Epithelial Cells Few HPF (Negative); Mucus Negative (Negative)
[2020-11-15] MEDS: metOLazone 2.5 MG TAB 5 MG PO (16:05)
[2020-11-15] MEDS: DOBUTamine 500 MG/250 ML BAG 6.464 MG IV (17:13)
[2020-11-15] MEDS: Spironolactone 25 MG TAB PO (20:07)
[2020-11-15] MEDS: Clotrimazole/Betamet Diprop Cream 15 GM TUBE TP (20:07)
[2020-11-15] MEDS: Warfarin 5 MG TAB 2.5 MG PO (22:25)
[2020-11-15] MEDS: Potassium Chloride 10 MEQ CAPCR 30 MEQ PO (23:00)
[2020-11-16] VITALS (74 sets, daily range): BP systolic 88–152; BP diastolic 11–129; PULSE 57–98; RESP 13–32; TEMP 36–36.3; O2SAT 89–98
[2020-11-16] MEDS: Acetaminophen 325 MG TAB PO (01:30)
[2020-11-16] MEDS: diphenhydrAMINE 25 MG CAP 50 MG PO ×2 (01:31→22:11)
[2020-11-16] MEDS: Levothyroxine 88 MCG TAB PO (06:15)
[2020-11-16 06:43] LABS: Abs Immature Grans 0.02 10^3/uL (0.0-0.06); Absolute Basophil Count 0.03 10^3/uL (0.0-0.2); Absolute Eosinophil Count 0.09 10^3/uL (0.0-0.7); Absolute Lymphocyte Count 0.89 10^3/uL (1.2-3.4); Absolute Neutrophil Count 5.73 10^3/uL (1.2-6.7); Basophils % 0.4; Eosinophils % 1.2; HGB 9.2 g/dL (11.2-15.7); Immature Grans % 0.3; Lymphocytes % 12.3; MCH 26.1 pg (27.0-33.0); MCHC 29.7 % (32.0-36.0); MCV 87.8 fL (80-95); MPV 9.5 fL (8.0-11.0); Monocytes % 6.9; Neutrophils % 78.9; Nucleated RBC 0 %; Platelet Count 161 10^3/uL (130-400); RBC 3.53 10^6/uL (3.93-5.22); RDW 18.8 % (11.7-14.6); RDW-SD 59.7 fL; WBC 7.26 10^3/uL (4.4-10.8)
[2020-11-16 06:52] LABS: INR 2.3 (0.9-1.1); Prothrombin Time 22.5 sec (9.3-11.0)
[2020-11-16 07:06] LABS: ALT 15 U/L (14-59); AST 11 U/L (15-37); Albumin 3.5 g/dL (3.4-5.0); Alkaline Phosphatase 81 U/L (46-116); Anion Gap 9.7 mmol/L (3-11); BUN 73 mg/dL (7-18); Bilirubin, Total 0.4 mg/dL (0.2-1.0); CO2 26.3 mmol/L (21.0-32.0); CREATININE 2.4 mg/dL (0.55-1.02); Chloride 105 mmol/L (98-107); Estimated GFR 19.73 (mL/min/1.73m2); Glucose 110 mg/dL (74-106); NT-proBNP 3893 pg/mL (<300); Potassium 3.9 mmol/L (3.5-5.1); Sodium 141 mmol/L (136-145); TSH 2.72 uIU/mL (0.36-3.74); Total Protein 6.5 g/dL (6.4-8.2)
[2020-11-16 07:30] LABS: Calculated LDL 93 mg/dL (<100); Cholesterol 147 mg/dL (<200); HDL Cholesterol 33 mg/dL (40-60); Triglyceride 109 mg/dL (<150)
--- NOTE | 2020-11-16 08:09 | INITIAL_ITS ---
- If Service Date Differs Date of service: 11/16/20 Time of Service: 15:58 Care Management Initial Assess REASON FOR HOSPITALIZATION:: Acute on chronic heart failure PAST MEDICAL HISTORY/PAST SURGICAL HISTORY:: Atrial fibrillation. Chronic diarrhea. Chronic diarrhea. Diverticula of colon. Family history of coronary arteriosclerosis. Heart failure with reduced ejection fraction. IBS (irritable bowel syndrome). LLQ abdominal pain. Post-cholecystectomy syndrome. Pulmonary hypertension. Tricuspid regurgitation. 06/19/16 [facility] (3+/4+). Abdominal hysterectomy. Bilateral salpingectomy with oophorectomy. Cholecystectomy. History of bilateral cataract extraction. Pacemaker. S/P laparoscopic cholecystectomy PREVIOUS FUNCTIONAL STATUS/SOCIAL/FAMILY SUPPORTS:: Jazzy resides in [place], [place] with her , Alexsander. They have a supportive family including their son, Max and daughter Jo, and their families who reside locally. Jazzy is independent at baseline, utilizes a cane due to joint stiffness. CURRENT FUNCTIONAL STATUS:: Jazzy is utilizing the bedside commode with one assist at this time, anticipate she will have new orders for RN/PT upon discharge at this time, notification sent to [facility], she will continue to be evaluated for further discharge needs. ADVANCE DIRECTIVES:: On file, Max as agent, Jo as alternate, others include Alexsander and Kemi Has patient been provided with info about the portal/API?: Yes Did the patient sign up for the portal?: Yes (Previously) CODE STATUS:: Full Code INSURANCE COVERAGE / FINANCIAL ISSUES:: Medicare. [facility] CURRENT HOME/COMMUNITY SERVICES/EQUIPMENT:: [facility] PRIMARY CARE PHYSICIAN:: Connor Medley POTENTIAL DISCHARGE NEEDS:: Follow up appointments, evaluations for additional services. PATIENT/FAMILY EDUCATION NEEDS:: Review discharge instructions, discuss Ask Me Three. ANTICIPATED BARRIERS TO DISCHARGE:: None identified at this time. TRANSPORTATION:: Via private vehicle with family. PLAN:: Anticipate Jazzy will return home when ready per MD. She will follow up with her PCP and plan of care as prescribed. She will transport via private vehicle with family.
[2020-11-16] MEDS: Psyllium PKT 1 EACH PO (08:40)
[2020-11-16] MEDS: Potassium Chloride 10 MEQ CAPCR 30 MEQ PO ×2 (08:40→20:08)
[2020-11-16] MEDS: Folic Acid 1 MG TAB PO (08:40)
[2020-11-16] MEDS: metOLazone 2.5 MG TAB 5 MG PO (08:41)
[2020-11-16] MEDS: Donepezil 5 MG TAB 10 MG PO (08:41)
[2020-11-16] MEDS: Sertraline 50 MG TAB 150 MG PO (08:41)
[2020-11-16] MEDS: Venlafaxine 37.5 MG CAPCR PO (08:41)
[2020-11-16] MEDS: Allopurinol 100 MG TAB 200 MG PO (08:47)
[2020-11-16] MEDS: Clotrimazole/Betamet Diprop Cream 15 GM TUBE TP ×2 (08:49→20:13)
[2020-11-16] MEDS: Metoprolol CR 50 MG TABCR PO (10:50)
--- NOTE | 2020-11-16 11:27 | W.PM.PROGNOT ---
Date of Service Date of service: 11/16/20 Time of Service: 11:27 Assessment and Plan Assessment and plan (1) Acute on chronic congestive heart failure: Status: Acute Assessment and plan: Although the patient's most recent cardiac catheterization from September 2020 showed reduced cardiac output by Yaw equation as well as by thermal dilution her echocardiogram from yesterday shows that her LV systolic function is preserved LV at reduced from where it was in 2019. Her echocardiogram December 2019 had shown LVEF of 72% with mild concentric LVH and mild to moderate aortic stenosis and mild aortic insufficiency. Her ejection fraction is now down to 50 to 55%. I will continue diuresis w/ iv lasix; goal is to take off another net negative 2.5 liters over the next 24hr. cont. xaroxolyn 5 mg daily and iv lasix; wean off dobutamine as her LVEF is preserved. family to bring in her Revatio. I have removed isosorbide dinitrate from her home med list as she should no longer be on this in the setting of taking sildenafil (Revatio). Qualifiers: Heart failure type: right-sided Qualified Code(s): I50.813 - Acute on chronic right heart failure (2) Heart failure with preserved ejection fraction, borderline, class III: Status: Acute (3) Atrial fibrillation: Status: Chronic Assessment and plan: patient is well controlled w/ her Toprol XL w/ hr in the 60's. she is adequately anticoagulated w/ INR of 2.3 on warfarin of 2.5 mg nightly Qualifiers: Atrial fibrillation type: unspecified Qualified Code(s): I48.91 - Unspecified atrial fibrillation (4) Pulmonary hypertension: Status: Chronic Assessment and plan: class I w/ some overlap features of WHO class 2 (left heart disease) and class 3 (pulmonary lung disease (GRECIA, COPD). I will ask family to bring in her Revatio. I have placed a call to the pulmonary hypertension clinic at [facility] and have asked to speak to Dr. Floyd Canchola to discuss management. (5) Hypothyroidism: Status: Acute Assessment and plan: TSH is ok at 2.72, therefore will keep her on her current dose of levothyroxine 88 mcg daily (6) Anticoagulated on warfarin: Status: Acute Assessment and plan: therapeutic on her INR. continue current dose of 2.5 mg nightly (7) CKD (chronic kidney disease) stage 3, GFR 30-59 ml/min: Status: Chronic Assessment and plan: no change in her BUN or creatinine despite aggressive diuresis. her baseline levels appear to have been around 2.0 back on June 2020 but since August her new baseline has been around 2.5. Her baseline BUN had been around 50 up until August 2020 and since then her baseline has been around 70. Even w/ aggressive diuresis her potassium level appears stable at 3.9 but she is on potassium supplementation along w/ her spironolactone. We will continue to monitor her daily bmp along w/ her urine outputs. (8) DVT prophylaxis: Status: Acute Assessment and plan: patient is on therapeutic warfarin (9) Discharge planning issues: Status: Acute Assessment and plan: I have specifically asked her about life support in the event of cardiopulmonary arrest and she indicated that she wants to be full code. Subjective Subjective Patient reports: no new complaints and feels better Interval history since last seen: Patient denies any chest pain or pressure. No dyspnea at rest but with any activity she gets short of breath. Overall she feels markedly improved compared to when she presented to the emergency department yesterday. Her weight is down to 76.7 kg and she is diuresed 2900 mL since yesterday. She remains on a Lasix drip at 1 mg/h and a dobutamine drip at 3 mcg/kg/min. I reviewed her echocardiogram she has low normal LV systolic function with no wall motion abnormalities. She has normal RV systolic function but with severe pulmonary hypertension and tricuspid regurgitation. Plan to wean her off the dobutamine drip but continue the furosemide drip for another 24 hours before switching over to oral diuretics. Exam Narrative Exam Narrative: Morbidly obese female who is alert and oriented person place time and circumstance able to speak in complete paragraphs without dyspnea. Neck veins with JVD. Lungs with bibasilar rales with diminished breath sounds over the left base with dullness to percussion over the same. Heart is irregular but at a controlled rate with a harsh murmur along the left sternal border as well as a systolic murmur over the aortic outflow tract. She also has a murmur over the apex consistent with mitral regurgitation. Abdomen soft and nontender Legs with 1+ pitting edema Objective Last Vital Signs Temp 36.0 C L 11/16/20 07:15 Pulse 60 11/16/20 10:31 Resp 17 11/16/20 10:31 BP 105/44 L 11/16/20 10:31 Pulse Ox 95 11/16/20 10:31 Laboratory Results - last 24 hr 11/15/20 11/15/20 11/15/20 12:43 13:20 16:30 WBC RBC Hgb Hct MCV MCH MCHC RDW Plt Count MPV Immature Gran % Neutrophils % Lymphocytes % Monocytes % Eosinophils % Basophils % Nucleated RBC % Absolute Neutrophils Absolute Lymphocytes Absolute Monocytes Absolute Eosinophils Absolute Basophils PT INR Sodium Potassium Chloride Carbon Dioxide Anion Gap BUN Creatinine Estimated GFR/1.73 m2 Glucose Calcium Total Bilirubin AST ALT Alkaline Phosphatase Troponin I < 0.05 Cancelled NT-Pro-B Natriuret Pep Total Protein Albumin Triglycerides Total Cholesterol LDL Cholesterol, Calc HDL Cholesterol TSH Urine Color Yellow Urine Clarity Clear Urine pH 6.0 Ur Specific Davidson 1.015 Urine Protein Negative Urine Ketones Negative Urine Blood Small H Urine Nitrite Negative Urine Bilirubin Negative Urine Urobilinogen 0.2 Ur Leukocyte Esterase Negative Urine RBC 3-5 H Urine WBC 3-5 Ur Epithelial Cells Few Urine Crystals Negative Urine Bacteria Negative Urine Casts Negative Urine Mucus Negative Ur Culture Indicated? No Urine Glucose Negative 11/16/20 11/16/20 11/16/20 06:08 06:08 06:08 WBC 7.26 RBC 3.53 L Hgb 9.2 L Hct 31.0 L MCV 87.8 MCH 26.1 L MCHC 29.7 L RDW 18.8 H Plt Count 161 MPV 9.5 Immature Gran % 0.3 Neutrophils % 78.9 Lymphocytes % 12.3 Monocytes % 6.9 Eosinophils % 1.2 Basophils % 0.4 Nucleated RBC % 0 Absolute Neutrophils 5.73 Absolute Lymphocytes 0.89 L Absolute Monocytes 0.50 Absolute Eosinophils 0.09 Absolute Basophils 0.03 PT 22.5 H INR 2.3 H Sodium 141 Potassium 3.9 Chloride 105 Carbon Dioxide 26.3 Anion Gap 9.7 BUN 73 H Creatinine 2.4 H Estimated GFR/1.73 m2 19.73 Glucose 110 H Calcium 9.0 Total Bilirubin 0.4 AST 11 L ALT 15 Alkaline Phosphatase 81 Troponin I NT-Pro-B Natriuret Pep 3893 H Total Protein 6.5 Albumin 3.5 Triglycerides 109 Total Cholesterol 147 LDL Cholesterol, Calc 93 HDL Cholesterol 33 L TSH 2.72 Urine Color Urine Clarity Urine pH Ur Specific Davidson Urine Protein Urine Ketones Urine Blood Urine Nitrite Urine Bilirubin Urine Urobilinogen Ur Leukocyte Esterase Urine RBC Urine WBC Ur Epithelial Cells Urine Crystals Urine Bacteria Urine Casts Urine Mucus Ur Culture Indicated? Urine Glucose Reviewed Pertinent PMH: Yes Objective Narrative Objective Narrative: Patient has diuresed nearly 2900 mL since admission. Her weight is down to 76.7 kg compared to her stated weight of 86.18 kg yesterday. No actual measured weight was obtained on admission. She remains on oxygen supplementation at 2 L/min per nasal cannula with O2 saturations of 95%. Blood pressures have been tenuous through the night with systolic blood pressures in the high 80s to low 90s and upwards of 105 mm with diastolic readings in the 50s. Her mean arterial pressure however has been in the 60s. She is asymptomatic from his blood pressure readings. Repeat labs showed no change in her BUN and creatinine despite diuretics. Her BUN 73 creatinine 2.4. Potassium is 3.9. proBNP remains elevated at 3900. Her troponin I levels were normal. Echocardiogram was performed yesterday I finally got a reading this morning. She has preserved left ventricular function with an ejection fraction of 50 to 55% albeit borderline low normal to mildly impaired. No wall motion abnormalities. However as I suspected based on my POCUS exam yesterday she had evidence of right ventricular volume overload with D-shaped deformity of her interventricular septum. She has a severely dilated right ventricle but with grossly normal systolic RV function. RVSP is 47 mm. She has a severely dilated right atrium along with moderate tricuspid regurgitation. She also has mild to moderate aortic insufficiency and mild aortic stenosis and mild to moderate mitral vegetation. There is been no significant change compared to her echocardiogram from January 02, 2020.
[2020-11-16] MEDS: Spironolactone 25 MG TAB PO ×2 (12:30→20:09)
[2020-11-16] MEDS: Normal Saline Flush 10 ML SYR IVP (12:50)
--- NOTE | 2020-11-16 14:50 | CHAPLAIN ---
Jazzy had two visitors with her, (daughter in law and grandson, I believe) and was enjoying the company when I visited. I introduced myself and offered support. Jazzy is grateful to be having visitors and said she is comfortable here.
[2020-11-16] MEDS: Acetaminophen 325 MG TAB 650 MG PO (22:13)
[2020-11-16] MEDS: Warfarin 5 MG TAB 2.5 MG PO (22:14)
[2020-11-17] VITALS (44 sets, daily range): BP systolic 92–146; BP diastolic 41–97; PULSE 52–105; RESP 12–34; TEMP 35.9–36.4; O2SAT 78–97
[2020-11-17] MEDS: traZODone 50 MG TAB PO (01:51)
[2020-11-17] MEDS: Levothyroxine 88 MCG TAB PO (06:00)
[2020-11-17 07:09] LABS: INR 2.3 (0.9-1.1); Prothrombin Time 22.3 sec (9.3-11.0)
[2020-11-17 07:11] LABS: Anion Gap 10.7 mmol/L (3-11); BUN 68 mg/dL (7-18); CO2 28.3 mmol/L (21.0-32.0); CREATININE 2.2 mg/dL (0.55-1.02); Calcium 9.4 mg/dL (8.5-10.1); Chloride 103 mmol/L (98-107); Estimated GFR 21.82 (mL/min/1.73m2); Glucose 104 mg/dL (74-106); Potassium 3.8 mmol/L (3.5-5.1); Sodium 142 mmol/L (136-145)
[2020-11-17] MEDS: Psyllium PKT 1 EACH PO (09:56)
[2020-11-17] MEDS: Potassium Chloride 10 MEQ CAPCR 30 MEQ PO ×2 (09:57→19:30)
[2020-11-17] MEDS: metOLazone 2.5 MG TAB 5 MG PO (09:58)
[2020-11-17] MEDS: Sertraline 50 MG TAB 150 MG PO (09:59)
[2020-11-17] MEDS: Folic Acid 1 MG TAB PO (10:00)
[2020-11-17] MEDS: Venlafaxine 37.5 MG CAPCR PO (10:00)
[2020-11-17] MEDS: Donepezil 5 MG TAB 10 MG PO (10:00)
[2020-11-17] MEDS: Spironolactone 25 MG TAB PO ×2 (10:00→19:30)
[2020-11-17] MEDS: Allopurinol 100 MG TAB 200 MG PO (10:01)
[2020-11-17] MEDS: Metoprolol CR 50 MG TABCR 25 MG PO (10:01)
--- NOTE | 2020-11-17 12:02 | W.PM.PROGNOT ---
Date of Service Date of service: 11/17/20 Time of Service: 12:02 Assessment and Plan Assessment and plan (1) Acute on chronic congestive heart failure: Status: Acute Assessment and plan: Has diuresed 4+ liters on lasix drip. Will continue lasix drip today. Cont Zaroxolyn and spironolactone. Improved clinically. Qualifiers: Heart failure type: right-sided Qualified Code(s): I50.813 - Acute on chronic right heart failure (2) Atrial fibrillation: Status: Chronic Assessment and plan: Cont Toprol XL; HR controlled. Cout Coumadin; INR 2.3 Qualifiers: Atrial fibrillation type: unspecified Qualified Code(s): I48.91 - Unspecified atrial fibrillation (3) Pulmonary hypertension: Status: Chronic Assessment and plan: It has been requested that family bring in her home prescription of Revatio. (4) Essential hypertension: Status: Acute Assessment and plan: SBP between 95-125 today. On metoprolol. Also on 3 diuretics; lasix drip, Zarolxolyn and spironolactone. (5) CKD (chronic kidney disease) stage 3, GFR 30-59 ml/min: Status: Chronic Assessment and plan: Creatinine improved from 2.6 to 2.2; likely from improved cardiac outpt and subsequent improved renal perfusion secondary to lasix drip. Monitor. Subjective Subjective Patient reports: no new complaints, feels better, tolerating a regular diet and afebrile; denies nausea and vomiting Interval history since last seen: She reports improved ease of breathing. Exam Const General: cooperative and no acute distress Nutritional Appearance: obese Orientation: alert and oriented x3 Eyes Conjunctivae: conjunctivae normal Sclera: sclerae normal Pupils: PERRL Resp Effort & Inspection: normal respiratory effort Auscultation: diminished lung sounds and rales Cardio Rate: regular rate Rhythm: regular rhythm Heart Sounds: S1 normal, S2 normal and murmur GI Palpation: soft and nontender Extrem General: no calf tenderness and edema Laterality: bilateral (2+) Psych Appearance: grossly normal Mental Status: mental status grossly normal Speech and Movement: speech and movement normal Affect: normal affect Objective Last Vital Signs Temp 36.0 C L 11/17/20 09:12 Pulse 67 11/17/20 10:15 Resp 12 11/17/20 10:15 BP 111/68 11/17/20 10:15 Pulse Ox 78 L 11/17/20 10:15 Laboratory Results - last 24 hr 11/17/20 11/17/20 06:25 06:34 PT 22.3 H INR 2.3 H Sodium 142 Potassium 3.8 Chloride 103 Carbon Dioxide 28.3 Anion Gap 10.7 BUN 68 H Creatinine 2.2 H Estimated GFR/1.73 m2 21.82 Glucose 104 Calcium 9.4
--- NOTE | 2020-11-17 12:35 | PDOC.CMPRO ---
- If Service Date Differs Date of service: 11/17/20 Time of Service: 12:35 Care Management Progress Note S/O:Jazzy was sitting up in a chair when CM met with her. She was pleasant and agreeable to conversation. Jazzy shared that she anticipates being discharged tomorrow. She has been told that her sue catheter will be removed later today and she will be given medication to remove more fluid. She verbalized that she has good support at home and will not need any additional services. A: Jazzy is a pleasant 75 year old woman admitted on 11/15/20 with CHF P:Anticipate Jazzy will return home with no new services when ready per MD. She will follow up with her PCP and plan of care as prescribed. She will transport via private vehicle with family. CM will continue to support Jazzy and her discharge planning needs.
[2020-11-17] MEDS: Clotrimazole/Betamet Diprop Cream 15 GM TUBE TP (19:29)
[2020-11-17] MEDS: Normal Saline Flush 10 ML SYR IVP (19:30)
[2020-11-17] MEDS: Warfarin 5 MG TAB 2.5 MG PO (19:30)
[2020-11-17] MEDS: Acetaminophen 325 MG TAB 650 MG PO (22:12)
[2020-11-17] MEDS: diphenhydrAMINE 25 MG CAP 50 MG PO (22:12)
[2020-11-18] VITALS (23 sets, daily range): BP systolic 97–114; BP diastolic 41–81; PULSE 59–99; RESP 14–25; TEMP 35.9–36.1; O2SAT 81–96
[2020-11-18] MEDS: Levothyroxine 88 MCG TAB PO (05:00)
[2020-11-18 06:46] LABS: HCT 33.4 % (36.0-46.0); HGB 9.9 g/dL (11.2-15.7)
[2020-11-18 06:56] LABS: Prothrombin Time 20.1 sec (9.3-11.0)
[2020-11-18 06:58] LABS: Anion Gap 8.4 mmol/L (3-11); BUN 72 mg/dL (7-18); CO2 29.6 mmol/L (21.0-32.0); CREATININE 2.2 mg/dL (0.55-1.02); Calcium 9.5 mg/dL (8.5-10.1); Chloride 103 mmol/L (98-107); Estimated GFR 21.82 (mL/min/1.73m2); Glucose 102 mg/dL (74-106); Potassium 4.3 mmol/L (3.5-5.1); Sodium 141 mmol/L (136-145)
[2020-11-18] MEDS: metOLazone 2.5 MG TAB 5 MG PO (07:56)
[2020-11-18] MEDS: Donepezil 5 MG TAB 10 MG PO (07:56)
[2020-11-18] MEDS: Venlafaxine 37.5 MG CAPCR PO (07:56)
[2020-11-18] MEDS: Sertraline 50 MG TAB 150 MG PO (07:57)
[2020-11-18] MEDS: Allopurinol 100 MG TAB 200 MG PO (07:57)
[2020-11-18] MEDS: Metoprolol CR 50 MG TABCR 25 MG PO (07:58)
[2020-11-18] MEDS: Folic Acid 1 MG TAB PO (07:59)
[2020-11-18] MEDS: Spironolactone 25 MG TAB PO (07:59)
[2020-11-18] MEDS: Psyllium PKT 1 EACH PO (07:59)
[2020-11-18] MEDS: Clotrimazole/Betamet Diprop Cream 15 GM TUBE TP (08:00)
[2020-11-18] MEDS: Potassium Chloride 10 MEQ CAPCR 30 MEQ PO (10:01)
--- NOTE | 2020-11-18 10:03 | DSE_ITS ---
Date of service: 11/18/20 Time of Service: 10:04 DS: Diagnosis Discharge Diagnosis (1) Acute on chronic congestive heart failure: Status: Acute (2) Atrial fibrillation: Status: Chronic (3) Pulmonary hypertension: Status: Chronic (4) Essential hypertension: Status: Acute (5) CKD (chronic kidney disease) stage 3, GFR 30-59 ml/min: Status: Chronic Discharge Plan Disposition Patient Disposition: HOME Condition: Improving Discharge Details Reason For Visit: Acute on chronic heart failure Admit Date/Time: 11/15/20 11:55 Admit Provider: Wilber Moreno Attending Provider: Wilber Moreno Primary Care Provider: Connor Medley Hospital Course Hospital Course: This is a 75 yr old female w/ PMH of former smoker w/ essential HTN and pulonary HTN, mod. severe TR, mild MR, HFPEF (LVEF72% per echo @ [facility] January 02, 2020) who underwent a right heart catheterization 09/17/2020 for evaluation of PHTN (see cardiac cath report for details but patient w/ severe PHTN (PAP 90/40 and reduced CO 2.53 (Yaw), 3.26 (thermodilution) and incr. PCWP mean 22). Patient presents to the ER w/ several weeks of increasing dyspnea and chest pressure w/ orthopnea and bilateral leg edema and 9# wt gain over last 3 wks. She was hypoxemic on arrival at 80% but dropped to as low as 72%. CXR demonstrated cardiomegaly and mod. large left pleural effusion and evidence of pacer wires. EKG demonstrates afib w/ ventricular pacing 76 ppm. BNP 3840 and troponin I <0.05, BUN 74, creatinine 2.6 (baseline 26, and 1.54). She was treated w/ supplemental oxygen 1 LPM and given lasix 80 mg IVP and was started on lasix drip at 10 mg/hr. She was also given a DuoNeb aerosol for wheezing. She was admitted for acute exacerbation of chronic CHF and PHTN and DANNY, she is being r/o for ACS, first two troponin levels were negative. Her last stress MPI was in 01/20/2017 at [facility] and showed no ischemic HD. A dobutamine drip at low dose and lasix drip were initiated. She diuresed well. Her respiratory status improved. She stated she monitors her O2 saturations at home and does typically have readings in the high 70's to the 80's with activity. At rest she is typically around 90. She was noted to have similar readings on the day of discharge. She does have portable oxygen at home and was encouraged to utilize it routinely while ambulating. She had no c/o chest pain or pressure. Her Ravatio was held after the admitting hospitalist spoke with Dr Canchola, wildland fire fighter, at [facility]. He indicated that the Ravatio / a pulmonary artery vasodilator, would improve forward flow across the pulmonary vasculature without worsening her LV. However, given the decline in her LVEF noted with Echocardiogram during this admission (EF down from 72% in December to 50-55%) it was better to hold it. Regarding her atrial fibrillation, her Toprol XL was decreased from 50mg daily to 25mg daily d/t low BP readings. Her INR remained in therapeutic range on her usual dose of warfarin. Her creatinine improved from 2.6 to 2.2 which is an improvement over what had appeared to be a new baseline of around 2.5. She will d/c to home with ongoing family support. F/U with her PCP in 1 week. Cardiology appointment in 2 weeks. Home Meds and New Rx's Prescriptions: New polyethylene glycol 3350 17 gram Powder In Packet 17 g PO DAILY PRN PRN (Reason: Constipation) Qty: 0 RF: 0 metoprolol succinate 50 mg Tablet Extended Release 24 Hr 25 mg PO DAILY Qty: 30 RF: 0 Continued torsemide 100 mg tablet 100 mg PO DAILY RF: 0 allopurinol 100 mg tablet 200 mg PO DAILY Qty: 180 RF: 3 clotrimazole-betamethasone 1-0.05 % cream 1 applic TP BID PRN (Reason: apply to rash under breast) Qty: 30 RF: 0 donepezil 10 mg tablet 10 mg PO DAILY Qty: 90 RF: 3 levothyroxine 88 mcg capsule 88 mcg PO DAILY Qty: 90 RF: 3 diphenhydramine-acetaminophen [Tylenol PM Extra Strength] 25-500 mg tablet 2 tab PO HS PRNRF: 0 nystatin 100,000 unit/gram powder 1 applic TP BID PRN (Reason: breast rash) Qty: 30 RF: 2 psyllium husk [Metamucil] 0.4 gram capsule 0.4 gm PO DAILY RF: 0 Gas-X 62.5 MG strip 1 strip PO PRN RF: 0 isosorbide dinitrate 5 mg tablet 10 mg PO BID Qty: 120 RF: 5 trazodone 50 mg tablet 50 mg PO HS PRN (Reason: insomnia) Qty: 90 RF: 3 IBguard See Rx Instructions PO DAILY RF: 0 sertraline 100 mg tablet 150 mg PO DAILY Qty: 135 RF: 3 venlafaxine 37.5 mg capsule,extended release 24hr 37.5 mg PO DAILY Qty: 90 RF: 3 folic acid 1 mg tablet 1 mg PO DAILY Qty: 100 RF: 3 dicyclomine 10 mg capsule 10 mg PO TID PRN (Reason: bowel spasms. left side colon pain) Qty: 30 RF: 3 acetaminophen [Tylenol Extra Strength] 500 MG tablet 500 mg PO DAILY PRN (Reason: Headache) RF: 0 metolazone 2.5 mg tablet 2.5 mg PO QWEEK PRNRF: 0 potassium chloride [Klor-Con 10] 10 mEq tablet extended release 30 meq PO BID RF: 0 warfarin 5 mg tablet 2.5 mg PO HS RF: 0 spironolactone 25 mg tablet 25 mg PO BID RF: 0 Discontinued metoprolol succinate 50 mg tablet extended release 24 hr 50 mg PO DAILY Qty: 90 RF: 3 sildenafil (pulm.hypertension) [Revatio] 20 mg tablet 20 mg PO TID RF: 0 Discharge Instructions Instructions: Low-Sodium Diet (DC) Activity:: Activity as Tolerated Equipment/Supplies:: No Equipment Needed Diet:: Low Sodium Discharge Orders Discharge Orders: Discharge Order (Routine); Ordered 11/18/20 Ordered By: Sammy Carrasco DS: Summary Time Spent with Patient providing and/or coordinating discharge services: Greater than 30 minutes Status at Discharge Functional status at discharge: independent ambulation Overall status at discharge: patient is back to baseline Mental Status: mental status grossly normal Speech and Movement: speech and movement normal Mood: congruent mood Affect: normal affect Exam Const General: cooperative and no acute distress Neck Neck: full ROM and no JVD Resp Effort & Inspection: normal respiratory effort Auscultation: diminished lung sounds and rales Cardio Rate: regular rate Rhythm: regular rhythm Heart Sounds: S1 normal and S2 normal GI Palpation: soft and nontender Extrem General: no calf tenderness and edema Laterality: bilateral (trace) Psych Appearance: grossly normal Mental Status: mental status grossly normal Speech and Movement: speech and movement normal Mood: congruent mood Affect: normal affect DS: Data Vitals/I&O Vitals and I&O: Vital Signs Temperature 36.1 C L 11/18/20 07:33 Temperature Source Temporal Artery Scan 11/18/20 07:33 Pulse 83 11/18/20 07:33 Pulse Rhythm Irregular 11/15/20 10:25 Pulse 64 11/18/20 08:00 Respiratory Rate 11/18/20 08:00 Respiratory Effort 11/18/20 07:33 Respiratory Depth Normal 11/18/20 07:33 Respiratory Pattern Normal 11/18/20 07:33 Blood Pressure 97/50 L 11/18/20 07:01 Blood Pressure Mean 63 11/18/20 07:01 Blood Pressure Position Supine 11/18/20 04:15 Pulse Oximetry 90 L 11/18/20 08:05 Oxygen Delivery Method Nasal Cannula 11/18/20 07:33 Oxygen Flow Rate 3 11/18/20 07:33 Pain Level 0 11/18/20 07:33 Comment 11/15/20 10:24 Intake & Output 11/17/20 11/17/20 11/18/20 11:59 23:59 11:59 Intake Total 425.566 / 9073.556 4172.417 / 1506.983 460 / 460 Output Total 20045 850 / 2855 325 / 325 Balance -1579.434 / -1348.017 231.417 / -1348.017 135 / 135 Weight 82.3 kg 82.2 kg 82.4 kg Intake: IV 65.566 / 93.983 28.417 / 93.983 Oral 360 / 1413 1053 / 1413 460 / 460 Output: Urine 2004 850 / 2855 325 / 325 Other: Urine Color Pale Yellow Yellow Yellow Urine Appearance Clear Clear Clear Comment sue Sue intact and draining clear pale yellow urine. Sue catheter in place Stool Occult Blood Positive Stool Size Moderate Stool Characteristics Soft Formed Data Completed and Pending Labs on day of discharge: Labs from last 24 hours 11/18/20 11/18/20 11/18/20 06:35 06:35 06:35 Hgb 9.9 L Hct 33.4 L PT 20.1 H INR 2.0 H Sodium 141 Potassium 4.3 Chloride 103 Carbon Dioxide 29.6 Anion Gap 8.4 BUN 72 H Creatinine 2.2 H Estimated GFR/1.73 m2 21.82 Glucose 102 Calcium 9.5 PFSH Medical History Atrial fibrillation Chronic diarrhea Chronic diarrhea Diverticula of colon Family history of coronary arteriosclerosis Heart failure with preserved ejection fraction, borderline, class III IBS (irritable bowel syndrome) LLQ abdominal pain Post-cholecystectomy syndrome Pulmonary hypertension Tricuspid regurgitation 06/19/16 [facility] (3+/4+) Surgical History Abdominal hysterectomy Bilateral salpingectomy with oophorectomy Cholecystectomy History of bilateral cataract extraction Pacemaker S/P laparoscopic cholecystectomy Family History Mother , age 60 Heart disease Father No problems noted. Brother , age 52 Lung cancer Depression Hypertension Brother , age 47 No problems noted. Other Family history of coronary arteriosclerosis Social History Smoking/Tobacco Use Status: Former Tobacco Use Pack-years: 10 Tobacco: How many years used: 31 Smoking risk assessment performed?: Yes Alcohol Intake: never Drug use: Never Substance use type: does not use Caregiver/Support person: No Household members: spouse Communication Needs: Hard of Hearing and Corrective Lenses Do you need help understanding health information?: Rarely Pets and animals: No Do you think of yourself as: straight/heterosexual What is your relationship status?: How often do you talk on the phone with friends or family?: three or more times per week How often do you get together with friends or relatives?: once per week How often do you attend hinduism or islam services?: 1-3 times per year Do you belong to any clubs or organized social groups?: no Panel score (0-1 are the most socially isolated patients): 2 What type of physical activity do you participate in: none Frequency: does not exercise Maricruz/Yazdanism: Spiritism Special maricruz needs: No Seatbelt use: always Helmet use: No Drive intox or ride w/intox power screwdriver operator: No Do you feel safe at home: Yes Do you feel safe in your relationship?: Yes
--- NOTE | 2020-11-18 12:46 | PDOC.CMDIS ---
- If Service Date Differs Date of service: 11/18/20 Time of Service: 12:46 LACE Index Scoring Tool - Questions: Length of Stay (in days): 3 Acuity (Admit via E.D.?): Yes Comorbidities: Congestive Heart Failure E.D. Visits: 1 - Answers: Total Score: 9 Risk of Readmission: Low Risk Care Management Discharge Reason for Hospitalization: Acute on chronic heart failure Discharge Plan: Jazzy will return home with no new services and will follow up with her PCP and plan of care as prescribed. She will transport via private vehicle with family. Patient/Family Education Needs: Review discharge instructions, discuss Ask Me Three.
== END 2020-11-18 11:25 | disposition home or self-care (01) | DRG 291 ==
LOC: ER 09:12 → ICU 13:02
PROVIDERS: Family Medicine; Admitting Provider Internal Medicine; Emergency Provider Physician Assistant; PCP Family Medicine; Visit Provider Internal Medicine
DX: I13.0 Hypertensive heart and chronic kidney disease with heart failure and stage 1 through stage 4 chronic kidney disease, or unspecified chronic kidney disease (principal); I50.23 Acute on chronic systolic (congestive) heart failure; I48.20 Chronic atrial fibrillation, unspecified; I50.813 Acute on chronic right heart failure; K57.30 Diverticulosis of large intestine without perforation or abscess without bleeding; K58.0 Irritable bowel syndrome with diarrhea; Z95.0 Presence of cardiac pacemaker; Z79.01 Long term (current) use of anticoagulants; Z87.891 Personal history of nicotine dependence; Z20.822 Contact with and (suspected) exposure to COVID-19; E66.9 Obesity, unspecified; Z68.33 Body mass index [BMI] 33.0-33.9, adult; E03.9 Hypothyroidism, unspecified; N18.30 Chronic kidney disease, stage 3 unspecified; I08.3 Combined rheumatic disorders of mitral, aortic and tricuspid valves; R09.02 Hypoxemia
CPT/HCPCS: 36415; 80048; 80053; 80061; 82805; 87635; 93005; 93306; 94640; 96365; 96366; 99291; 71046; 81003; 81015; 83605; 83735; 83880; 84443; 84484; 85014; 85018; 85025; 85610; 93010; 99223; 99232; 99233; 99239; J1940; J7620

== ENCOUNTER → 2020-11-22 12:29 | Outpatient (BNVA) | payer MEDICARE, OTHER, SELFPAY | PROVIDERS: PCP Family Medicine; Referring Provider Family Medicine; Visit Provider Internal Medicine Cardiovascular Disease | DX: I50.30 Unspecified diastolic (congestive) heart failure (principal); I48.91 Unspecified atrial fibrillation; I27.20 Pulmonary hypertension, unspecified; N28.9 Disorder of kidney and ureter, unspecified; I11.0 Hypertensive heart disease with heart failure; Z95.0 Presence of cardiac pacemaker | CPT/HCPCS: 99204; 99215 ==